=== PATIENT | female | born 1950 | race Caucasian/White ===

== ENCOUNTER 2017-01-21 18:28 | Inpatient (IN) | payer OTHER ==
[~2017-01-21] VITALS: Ht 154.9 cm; Wt 140.0 kg
--- NOTE | 2017-01-21 18:52 | ERA ---
ER Documentation Chief Complaint Date/Time DATE: 01/21/17 TIME: 18:51 Chief Complaint Abdominal pain HPI The patient is 67-year-old female, presenting to the ER because of diffuse abdominal pain, more painful at the right upper quadrant radiating to the right shoulder for the last week, worse today. She denies any chest pain as documented by the triage note. She denies fever, chills, neck pain, dyspnea, vomiting, dysuria, diarrhea, constipation. She does not smoke nor drink Past medical history: Diabetes mellitus, dyslipidemia, bipolar disorder, schizoaffective disorder, cholelithiasis Past surgical history: None ROS All systems reviewed and are negative except as per history of present illness. Allergies Allergies: Coded Allergies: No Known Allergy (Unverified , 01/21/17) Physical Exam Vitals Vital Signs Date Time Temp Pulse Resp B/P Pulse Ox O2 Delivery O2 Flow Rate FiO2 01/21/17 18:46 98.4 138 24 138/102 91 Physical Exam Const: No acute distress. Head: Atraumatic. Eyes: Normal Conjunctiva. ENT: Normal External Ears, Nose and Mouth. Neck: Full range of motion. No meningismus. Resp: Clear to auscultation bilaterally. Cardio: Regular tachycardic Abd: Soft, non distended, normal bowel sounds, diffuse abdominal tenderness, more tender at the right upper quadrant, no rigidity, rebound, CVA tenderness Skin: No petechiae or rashes. Back: No midline or flank tenderness. Ext: No cyanosis, or edema. Neur: Awake and alert. No focal deficit Psych: Normal Mood and Affect. Result Diagram: 01/21/17 1850 01/21/17 1850 Results 24 hrs Laboratory Tests Test 01/21/17 18:50 White Blood Count 14.310^3/ul Red Blood Count 5.2210^6/ul Hemoglobin 13.6g/dl Hematocrit 40.8% Mean Corpuscular Volume 78.2fl Mean Corpuscular Hemoglobin 26.1pg Mean Corpuscular Hemoglobin Concent 33.3g/dl Red Cell Distribution Width 13.8% Platelet Count 88308^3/UL Mean Platelet Volume 10.4fl Neutrophils % 67.0% Lymphocytes % 24.3% Monocytes % 6.9% Eosinophils % 0.9% Basophils % 0.4% Nucleated Red Blood Cells % 0.0/100WBC Neutrophils # 9.610^3/ul Lymphocytes # 3.510^3/ul Monocytes # 1.010^3/ul Eosinophils # 0.110^3/ul Basophils # 0.110^3/ul Nucleated Red Blood Cells # 0.010^3/ul Prothrombin Time 14.9Sec Prothrombin Time Ratio 1.2 INR International Normalized Ratio 1.16 Activated Partial Thromboplast Time 21.4Sec D-Dimer Pending Sodium Level 138mmol/L Potassium Level 3.2mmol/L Chloride Level 97mmol/L Carbon Dioxide Level 21mmol/L Anion Gap 23 Blood Urea Nitrogen 7mg/dl Creatinine 0.66mg/dl Glucose Level 254mg/dl Lactic Acid Level 4.3mmol/L Calcium Level 8.4mg/dl Total Bilirubin 0.4mg/dl Direct Bilirubin 0.00mg/dl Indirect Bilirubin 0.4mg/dl Aspartate Amino Transf (AST/SGOT) 22IU/L Alanine Aminotransferase (ALT/SGPT) 18IU/L Alkaline Phosphatase 176IU/L Troponin I < 0.012ng/ml Total Protein 8.5g/dl Albumin 3.8g/dl Globulin 4.70g/dl Albumin/Globulin Ratio 0.80 Thyroid Stimulating Hormone (TSH) Pending Current Medications Medications (Trade) Dose Ordered Sig/Mireya Route PRN Reason Start Time Stop Time Status Last Admin Dose Admin Piperacillin Sod/ Tazobactam Sod (Zosyn 3.375gm/ 100 ml (Pmx)) 100 ml @ 200 mls/hr ONCE ONCE IVPB 01/21/17 20:00 01/21/17 20:29 01/21/17 19:54 Morphine Sulfate (morphine) 4 mg ONCE STAT IV 01/21/17 19:38 01/21/17 19:39 DC 01/21/17 19:54 Ondansetron HCl 4 mg 4 mg ONCE STAT IV 01/21/17 19:38 01/21/17 19:39 DC 01/21/17 19:54 Sodium Chloride 4,340 ml @ 4,340 mls/hr BOLUS X1 ONCE IV 01/21/17 20:00 01/21/17 20:59 01/21/17 19:55 Potassium Chloride (KCl 40 MEQ/250 ML NS) 250 ml @ 62.5 mls/hr ONCE ONCE IVPB 01/21/17 20:00 01/21/17 23:59 Procedures/MDM EKG: Read by emergency physician Rate/Rhythm: Sinus tachycardia 136 beats/min QRS, ST, T-waves: No ST elevation, no T inversion Impression: Abnormal EKG [place] [id number] Radiology Main Line: [phone] DIAGNOSTIC IMAGING REPORT Patient: NICOLE REYES : 1950 Age: 67 Sex: F MR #: [id number] DOS: 01/21/17 1855 Ordering MD: LAUREN CALDERÓN MD Location: E/R Room/Bed: PROCEDURE: CT abdomen and pelvis with. contrast. CLINICAL INDICATION: Abdominal pain. TECHNIQUE: Noncontrast CT examination of the abdomen and pelvis, with axial, sagittal and coronal reformatted images. CTDI: 23.74 mGy and DLP: 1661.66 mGy-cm. COMPARISON: None. FINDINGS: CT abdomen: The lung bases are clear. The heart size is normal, without pericardial thickening or effusion. On noncontrast attenuation of the liver is compatible with fatty infiltration. Small amount of free fluid over the liver. The spleen is normal in size and homogeneous in density. The stomach is partially collapsed, but is grossly unremarkable. The pancreas as visualized is normal. The gallbladder is dilated , gallbladder wall thickening, pericholecystic fluid and large gallstone. Findings compatible with acute cholecystitis. Intraperitoneal fat inflammatory changes over the region of the gallbladder. Otherwise, the biliary tree is unremarkable and there is no evidence for biliary dilatation. The adrenal glands are symmetric and normal. The kidneys are symmetrically unremarkable as well. No renal calculus or obstructive uropathy or mass lesion is seen. The aorta is of normal caliber. Aortic vascular calcifications are mild. There is no retroperitoneal lymphadenopathy. The camila hepatis region is clear. The bowel and mesentery, as visualized, are equally unremarkable. CT pelvis: The small bowel loops situated within the pelvis are unremarkable. The pelvic organs are normal. The pelvic sidewalls and inguinal regions are clear. The sigmoid colon and rectum are all unremarkable. No mass, lymphadenopathy, or free fluid is seen. No acute inflammation is seen. The discretely visualize likely appendix is unremarkable. The surrounding osseous structures are remarkable for mild degenerative spondylosis of the spine. No osteolytic or osteoblastic lesion is detected. IMPRESSION: 1. Acute cholecystitis. 2. Fatty infiltration of the liver, with small amount of free fluid over the liver. RPTAT: [facility] Physician Sakina Date Time Electronically viewed and signed by Physician Sakina on 01/21/2017 19:23 RS/ CC: LAUREN CALDERÓN MD MEDICAL MAKING DECISION: The patient is a 67-year-old female, presenting with acute septic shock, acute cholecystitis, acute hypokalemia. She was treated with Zosyn IV, IV fluid, morphine 4 mg v for pain, Zofran 4 mg IV for nausea, potassium chloride 40 mEq IV, normal saline 30 mL/kg IV. The differential diagnoses considered include but are not limited to cholelithiasis, cholecystitis, cystitis, pancreatitis, hepatitis, gastritis, peptic ulcer disease, gastric ulcer, appendicitis, diverticulitis, cholangitis, choledocholithiasis, partial small bowel obstruction. Urinalysis, TSH, d-dimer, chest x-ray are pending Admit MDM: Patient's infectious symptoms have not stabilized and the patient is at risk of rapid decompensation. The patient will be admitted for careful hydration, antibiotic therapy, and infectious source control. Severe Sepsis criteria: Infectious source: Cholecystitis End organ damage indicated by: Lactate > 2.0 mmol/L Sepsis Management: Time of recognition of severe sepsis/septic shock:7:30 PM Within 3 hours of recognition: Blood cultures x 2 before broad-spectrum antibiotics: Yes 30 ml/kg NS bolus completed Initial lactate 4.3 Repeat lactate pnd Critical Care: Critical care time 35 minutes Emergent fluid management while maintaining close respiratory support. Provision of immediate and broad-spectrum antibiotic therapy. Simultaneous assessment for possible sources in order to direct targeted therapy. Consideration for invasive and chemical support to prevent cardiopulmonary collapse. Septic Shock Assessment: Any lactic acid > 4.0 no Persistent hypotension (SBP < 90 or 40 mmHg drop, MAP < 65) despite 30 mL/kg IV fluid bolusno Departure Diagnosis: Primary Impression: Septic shock Additional Impressions: Cholecystitis Hypokalemia Condition: Stable Comments Consultation: I discussed the patient with the on-call general surgeon Dr. Davila at 7:30 PM, who was made aware of the lab, treatment, the patient condition. He accepted the consult I discussed the findings with the patient. I discussed the patient with the hospitalist Dr. Kennedy who was made aware of the lab, the treatment, the patient condition. The patient is admitted to telemetry at 7:40 PM The patient's blood pressure was elevated (>120/80) but appears stable without evidence of hypertension emergency or urgency. The patient was counseled about the risks of hypertension and urged to pursue outpatient monitoring and therapy within a week after discharge with their primary care physician. LAUREN CALDERÓN MD Jan 21, 2017 18:52
[2017-01-21 19:11] LABS: ADD SCAN DIFF NO
[2017-01-21 19:16] LABS: BASOPHIL # 0.1 10^3/ul (0.0-0.1); BASOPHILS % 0.4 % (0.0-2.0); EOSINOPHILS # 0.1 10^3/ul (0.0-0.5); EOSINOPHILS % 0.9 % (0.0-7.0); HEMATOCRIT 40.8 % (37.0-47.0); HEMOGLOBIN 13.6 g/dl (12.0-16.0); LYMPHOCYTES # 3.5 10^3/ul (0.8-2.9); LYMPHOCYTES % 24.3 % (15.0-51.0); MEAN CORPUSCULAR HEMOGLOBIN 26.1 pg (29.0-33.0); MEAN CORPUSCULAR HGB CONC 33.3 g/dl (32.0-37.0); MEAN CORPUSCULAR VOLUME 78.2 fl (82.0-101.0); MEAN PLATELET VOLUME 10.4 fl (7.4-10.4); MONOCYTES % 6.9 % (0.0-11.0); NEUTROPHIL # 9.6 10^3/ul (1.6-7.5); PLATELET COUNT 311 10^3/UL (140-415); RED BLOOD COUNT 5.22 10^6/ul (4.20-5.40); RED CELL DISTRIBUTION WIDTH 13.8 % (11.5-14.5); WHITE BLOOD COUNT 14.3 10^3/ul (4.8-10.8)
--- NOTE | 2017-01-21 19:23 | RADRPT ---
PROCEDURE: CT abdomen and pelvis with. contrast. CLINICAL INDICATION: Abdominal pain. TECHNIQUE: Noncontrast CT examination of the abdomen and pelvis, with axial, sagittal and coronal re formatted images. CTDI: 23.74 mGy and DLP: 1661.66 mGy-cm. COMPARISON: None. FINDINGS: CT abdomen: The lung bases are clear. The heart size is normal, without pericardial thickening or effusion. On noncontrast attenuation of the liver is compatible with fatty infiltration. Small amount of free fluid over the liver. The spleen is normal in size and homogeneous in density. The stomach is parti ally collapsed, but is grossly unremarkable. The pancreas as visualized is normal. The gallbladder is dilated, gallbladder wall thickening, pericholecystic fluid and large gallstone. Findings cipriano tible with acute cholecystitis. Intraperitoneal fat inflammatory changes over the region of the gall bladder. Otherwise, the biliary tree is unremarkable and there is no evidence for biliary dilatation . The adrenal glands are symmetric and normal. The kidneys are symmetrically unremarkable as well. No renal calculus or obstructive uropathy or mass lesion is seen. The aorta is of normal caliber. Aortic vascular calcifications are mild. There is no retroperitone al lymphadenopathy. The camila hepatis region is clear. The bowel and mesentery, as visualized, are equally unremarkable. CT pelvis: The small bowel loops situated within the pelvis are unremarkable. The pelvic organs are normal. T he pelvic sidewalls and inguinal regions are clear. The sigmoid colon and rectum are all unremarkab le. No mass, lymphadenopathy, or free fluid is seen. No acute inflammation is seen. The discretel y visualize likely appendix is unremarkable. The surrounding osseous structures are remarkable for mild degenerative spondylosis of the spine. N o osteolytic or osteoblastic lesion is detected. IMPRESSION: 1. Acute cholecystitis. 2. Fatty infiltration of the liver, with small amount of free fluid over the liver. RPTAT: [facility] Physician Sakina Date Time Electronically viewed and signed by Physician Sakina on 01/21/2017 19:23 RS/
[2017-01-21 19:30] LABS: ALBUMIN 3.8 g/dl (3.3-4.9); CHLORIDE 97 mmol/L (97-110)
[2017-01-21 19:31] LABS: POTASSIUM 3.2 mmol/L (3.5-5.1); SODIUM 138 mmol/L (135-144)
[2017-01-21 19:33] LABS: ALANINE AMINOTRANSFERASE 18 IU/L (13-69); ALKALINE PHOSPHATASE 176 IU/L (42-121); ANION GAP 23 (8-16); ASPARTATE AMINO TRANSFERASE 22 IU/L (15-46); BILIRUBIN,INDIRECT 0.4 mg/dl (0-1.1); BILIRUBIN,TOTAL 0.4 mg/dl (0.2-1.3); BLOOD UREA NITROGEN 7 mg/dl (7-20); CARBON DIOXIDE 21 mmol/L (21-31); CREATININE 0.66 mg/dl (0.44-1.00); TOTAL PROTEIN 8.5 g/dl (6.1-8.1)
[2017-01-21 19:34] LABS: CALCIUM 8.4 mg/dl (8.4-10.2); GLUCOSE 254 mg/dl (70-220)
[2017-01-21 19:36] LABS: INR 1.16; PARTIAL THROMBOPLASTIN TIME 21.4 Sec (25.0-35.0); PROTIME 14.9 Sec (12.2-14.2); PT RATIO 1.2
[2017-01-21] MEDS ORDERED: ONDANSETRON 4 MG INJ IV STA (19:38)
[2017-01-21] MEDS ORDERED: morphine 4 MG/ML VIAL IV STA (19:38)
[2017-01-21 19:45] LABS: TROPONIN-I < 0.012 ng/ml (0.00-0.12)
[2017-01-21] MEDS ORDERED: POTASSIUM CHLORIDE 250 ML IVPB ONE (20:00)
[2017-01-21] MEDS ORDERED: SOD CHLORIDE 0.9% IV ONE (20:00)
[2017-01-21] MEDS ORDERED: PIPER-TAZO 3.375 GM IV (PMX) 100 ML IVPB ONE (20:00)
--- NOTE | 2017-01-21 20:01 | HP ---
Date/Time of Note Date/Time of Note DATE: 01/21/17 TIME: 20:01 Assessment/Plan VTE Prophylaxis VTE Prophylaxis Intervention: other (Lovenox) Assessment/Plan Assessment/Plan 1) Severe Septic with elevated lactic acid, elevated heart rate and elevated respiratory rate and infected gall bladder - Admit to Telemetry - IV Hydration - Monitor - Supportive Care 2) Cholecystitis, Acute - NPO - Pain Control and Zosyn - General Surgery Consult done by Dr. Pike who requests Cardiac Clearance prior to surgery - CONSULT: Cardiology - Dr. Stephens 3) Hypokalemia - Replacement 4) Schozoaffective Disorder - On monthly Haldol per RN - No current treatment needed HPI/ROS Admit Date/Time Admit Date/Time 01/21/171945 Hx of Present Illness Abdominal pain HPI The patient is 67-year-old female, presenting to the ER because of diffuse abdominal pain, more painful at the right upper quadrant radiating to the right shoulder for the last week, worse today. She denies any chest pain as documented by the triage note. She denies fever, chills, neck pain, dyspnea, vomiting, dysuria, diarrhea, constipation. She does not smoke nor drink ER Course per ER Physician: She was treated with Zosyn IV, IV fluid, morphine 4 mg v for pain, Zofran 4 mg IV for nausea, potassium chloride 40 mEq IV, normal saline 30 mL/kg IV. ROS General: Admits: Denies: Fever, Chills, Poor Appetite, Generalized Body Aches Eyes: Admits: Denies: Blurry Vision, Double Vision HENT: Admits: Denies: Ear Pain/Pressure, Runny/Stuffy Nose, Sore Throat Cardiovascular: Admits: Denies: Chest Pain, Palpitations, Leg Swelling Pulmonary: Admits: Denies: Cough, Wheeze, Shortness of Breath Gastrointestinal: Admits: Abdominal Pain, Denies: Nausea, Vomiting, Diarrhea, Blood in Stool, Black-Colored Stool Urogenital: Admits: Denies: Burning with Urination, Urinary Frequency, Blood in Urine Musculoskeletal: Admits: Denies: Joint Pain, Joint Swelling, Muscle Pain Neurological: Admits: Denies: Headache, Dizziness, Numbness, Tingling, Shooting Pains Integumentary: Admits: Denies: Rash, Itch Endocrine: Admits: Denies: Excessive Thirst, Excessive Hunger, Intolerant to Cold , Intolerant to Heat Psychiatric: Admits: Denies: Anxiety, Depression PMH/Family/Social Past Medical History Diabetes mellitus, dyslipidemia, bipolar disorder, schizoaffective disorder, cholelithiasis Past Surgical History Past Surgical Hx: no surgical history Social History Alcohol Use: none Smoking Status: Never smoker Drug Use: none Exam/Review of Systems Vital Signs Vitals Vital Signs Date Time Temp Pulse Resp B/P Pulse Ox O2 Delivery O2 Flow Rate FiO2 01/21/17 18:46 98.4 138 24 138/102 91 Exam Exam General: Morbidly obese female, lying on gurney in ER with 2 brothers at her bedside. She is alert and cooperative, in no acute distress. Eyes: Sclera White, EOMI HENT: Normocephalic/Atraumatic, External Ears/Nose Normal, Moist Mucus Membranes Neck: Supple, Trachea Midline Cardiovascular: Tachy Rate, Normal Rhythm, Normal S1 and S2, No Murmur, No Extra Sounds Pulmonary: Clear to Auscultation Bilaterally, Normal Respiratory Effort, No Rales, Rhonchi or Wheezes Gastrointestinal: Normoactive Bowel Sounds, Soft, Diffuse abdominal tenderness , most tender at RUQ, no guarding, no rebound.No Distention, No Hepatosplenomegaly Appreciated, No Pulsatile Masses Urogenital: Deferred Musculoskeletal: Normal Muscle Bulk and Tone Cardio: Neurological: CN II - XII Grossly Intact, Non-Focal, Speech Normal Integumentary: Normal Moisture and Temperature, Good Turgor, No Jaundice, No Rash. Hirsuit chin. Lymphatic: No Cervical Lymphadenopathy Psychiatric: Appropriate Mood and Affect, Fair Eye Contact Labs Result Diagram: 01/21/17184901/21/171849 Medications Medications Current Medications Medications (Trade) Dose Ordered Sig/Mireya Route PRN Reason Start Time Stop Time Status Last Admin Dose Admin Piperacillin Sod/ Tazobactam Sod (Zosyn 3.375gm/ 100 ml (Pmx)) 100 ml @ 200 mls/hr ONCE ONCE IVPB 01/21/17 20:00 01/21/17 20:29 01/21/17 19:54 Morphine Sulfate (morphine) 4 mg ONCE STAT IV 01/21/17 19:38 01/21/17 19:39 DC 01/21/17 19:54 Ondansetron HCl 4 mg 4 mg ONCE STAT IV 01/21/17 19:38 01/21/17 19:39 DC 01/21/17 19:54 Sodium Chloride 4,340 ml @ 4,340 mls/hr BOLUS X1 ONCE IV 01/21/17 20:00 01/21/17 20:59 01/21/17 19:55 Potassium Chloride (KCl 40 MEQ/250 ML NS) 250 ml @ 62.5 mls/hr ONCE ONCE IVPB 01/21/17 20:00 01/21/17 23:59 Procedures Procedures Laboratory Tests Test 01/21/17 18:50 White Blood Count 14.310^3/ul Red Blood Count 5.2210^6/ul Hemoglobin 13.6g/dl Hematocrit 40.8% Mean Corpuscular Volume 78.2fl Mean Corpuscular Hemoglobin 26.1pg Mean Corpuscular Hemoglobin Concent 33.3g/dl Red Cell Distribution Width 13.8% Platelet Count 64635^3/UL Mean Platelet Volume 10.4fl Neutrophils % 67.0% Lymphocytes % 24.3% Monocytes % 6.9% Eosinophils % 0.9% Basophils % 0.4% Nucleated Red Blood Cells % 0.0/100WBC Neutrophils # 9.610^3/ul Lymphocytes # 3.510^3/ul Monocytes # 1.010^3/ul Eosinophils # 0.110^3/ul Basophils # 0.110^3/ul Nucleated Red Blood Cells # 0.010^3/ul Prothrombin Time 14.9Sec Prothrombin Time Ratio 1.2 INR International Normalized Ratio 1.16 Activated Partial Thromboplast Time 21.4Sec D-Dimer Pending Sodium Level 138mmol/L Potassium Level 3.2mmol/L Chloride Level 97mmol/L Carbon Dioxide Level 21mmol/L Anion Gap 23 Blood Urea Nitrogen 7mg/dl Creatinine 0.66mg/dl Glucose Level 254mg/dl Lactic Acid Level 4.3mmol/L Calcium Level 8.4mg/dl Total Bilirubin 0.4mg/dl Direct Bilirubin 0.00mg/dl Indirect Bilirubin 0.4mg/dl Aspartate Amino Transf (AST/SGOT) 22IU/L Alanine Aminotransferase (ALT/SGPT) 18IU/L Alkaline Phosphatase 176IU/L Troponin I < 0.012ng/ml Total Protein 8.5g/dl Albumin 3.8g/dl Globulin 4.70g/dl Albumin/Globulin Ratio 0.80 Thyroid Stimulating Hormone (TSH) Pending EKG: Read by emergency physician Rate/Rhythm: Sinus tachycardia 136 beats/min QRS, ST, T-waves: No ST elevation, no T inversion Impression: Abnormal EKG PROCEDURE: CT abdomen and pelvis with. contrast. CLINICAL INDICATION: Abdominal pain. COMPARISON: None. IMPRESSION: 1. Acute cholecystitis. 2. Fatty infiltration of the liver, with small amount of free fluid over the liver. DOUGLAS SNEED DO Jan 21, 2017 20:01 Lactic Acid Level 4.3mmol/L Calcium Level 8.4mg/dl Total Bilirubin 0.4mg/dl Direct Bilirubin 0.00mg/dl Indirect Bilirubin 0.4mg/dl Aspartate Amino Transf (AST/SGOT) 22IU/L Alanine Aminotransferase (ALT/SGPT) 18IU/L Alkaline Phosphatase 176IU/L Troponin I < 0.012ng/ml Total Protein 8.5g/dl Albumin 3.8g/dl Globulin 4.70g/dl Albumin/Globulin Ratio 0.80 Thyroid Stimulating Hormone (TSH) Pending EKG: Read by emergency physician Rate/Rhythm: Sinus tachycardia 136 beats/min QRS, ST, T-waves: No ST elevation, no T inversion Impression: Abnormal EKG PROCEDURE: CT abdomen and pelvis with. contrast. CLINICAL INDICATION: Abdominal pain. COMPARISON: None.
[2017-01-21 20:23] LABS: D-DIMER 3960.68 ng/ml (<460)
--- NOTE | 2017-01-21 21:14 | RADRPT ---
PROCEDURE: XR Chest. CLINICAL INDICATION: Possible sepsis. TECHNIQUE: Single frontal view of the chest was obtained COMPARISON: Partially visualized lung bases on today's CT examination of the abdomen and pelvis. FINDINGS: Hypoinflated lungs, the patient body habitus and portable technique accentuates pulmonary vascular m arkings. Mild bibasilar atelectasis, left greater than right. There is no pleural effusion or pneumothorax. IMPRESSION: Mild bibasilar atelectasis, left greater than right. RPTAT: [facility] Physician Sakina Date Time Electronically viewed and signed by Physician Sakina on 01/21/2017 21:13 RS/
[2017-01-21] MEDS ORDERED: LORAZEPAM 2 MG INJ ONE (21:20)
--- NOTE | 2017-01-21 21:23 | CONS ---
DATE OF ADMISSION: 01/21/2017 DATE OF CONSULTATION: 01/21/2017 TYPE OF CONSULTATION: Surgical REFERRING PHYSICIAN: Josh Calderón MD CHIEF COMPLAINT: 1. Abdominal pain. 2. Acute cholecystitis. 3. Body mass index 51. 4. Diabetes. 5. Hypertension. 6. Leukocytosis. 7. Lactic acidosis. 8. Fatty liver. 9. Depression. 10. Schizophrenia. 11. Bipolar. HISTORY OF PRESENT ILLNESS: Orlin Montemayor is a 67-year-old female with multiple significant com orbidities who presents with a week of on and off epigastric and right upper quadrant abdominal pain which has worsened over the past few days and more constant and sharp. It is associated with pain with deep inspiration; however, no nausea, vomiting, fevers or chills. No cough. No seizure. No b lood per mouth or rectum. No visual or neurologic changes. No dysuria. No vaginal discharge. No previous history of the same. No trauma or sick contacts. In the emergency room, she is found to be afebrile with abnormal vitals including a pulse in the 120 s to 130s, blood pressure 138/102. The patient had blood work that shows leukocytosis at 14,000 and lactic acid of 4.3. CT scan of the abdomen and pelvis shows fatty liver with acute cholecystitis. Surgical consult is obtained for further evaluation and treatment. PAST MEDICAL HISTORY: 1. Morbid obesity with BMI of 51. 2. Fatty liver. 3. Diabetes. 4. Hypertension. 5. Schizophrenia. 6. Depression. 7. Bipolar. 8. Acute leukocytosis. 9. Acute cholecystitis. 10. Hypokalemia, acute. 11. Hyperglycemia. 12. Acute lactic acidosis. PAST SURGICAL HISTORY: Denies. MEDICATIONS: As per MAR. ALLERGIES: DENIES. SOCIAL HISTORY: Denies alcohol, drugs or tobacco. FAMILY HISTORY: Noncontributory. REVIEW OF SYSTEMS: A 12-point review of systems negative unless addressed in the HPI. PHYSICAL EXAMINATION: VITAL SIGNS: Temperature is 98.4, pulse 120s to 130s, blood pressure 138/102, satting 91%. GENERAL: Morbidly obese, no acute distress. Flat affect. HEENT: Pupils equal, reactive. No scleral icterus. Mucous membranes are moist. NECK: Supple, obese, no JVD observable. PULMONARY: Normal respiratory effort. No wheezing. CARDIAC: S1, S2 present and tachy. ABDOMEN: Soft, morbidly obese, tender in the epigastric and right upper quadrant region. No reboun d, no guarding, not rigid; however, difficult to exam. EXTREMITIES: With edema. VASCULAR: Cap refill is 2 seconds. NEUROLOGIC: Alert and oriented, moves all 4 extremities grossly. LABORATORY AND RADIOGRAPHIC: As per chart and HPI. ASSESSMENT AND PLAN: Orlin Montemayor is a 67-year-old female with significant comorbidities. 1. Abdominal pain, leukocytosis and CT findings are suggestive of acute cholecystitis. Continue an tibiotics, supportive care and consider eventual surgery; however, the patient needs to be medically optimized. 2. Possible sepsis secondary to above. Continue antibiotics judicious fluid management and medical optimization. 3. Morbid obesity with body mass index of 51. The patient is highly encouraged to eventually optim ize her nutrition and exercise to improve her overall health status. 4. Hypokalemia, please replete. 5. Diabetes. Continue diet and medication control and encourage weight loss. 6. Hypertension. Continue diet and medication control and encourage weight loss. 7. Lactic acidosis secondary to #1 and #2. Treatment as above. 8. Psychiatric disorders with bipolar, depression and schizophrenia. Continue medical and psychiat jermaine optimization. Thank you very much for consulting me in this patient's care. Dictated By: ANGELICA RIVERA MD SK/REHAN Conf#: [id number] DID#: [id number] CC: JOSH CALDERÓN MD; ANGELICA RIVERA MD;*EndCC*
[2017-01-21] MEDS: morphine 4 MG/ML VIAL IV PRN (21:24)
[2017-01-21] MEDS ORDERED: LORAZEPAM 2 MG INJ IV PRN ×2 (21:30→23:00)
[2017-01-21] MEDS ORDERED: ONDANSETRON 4 MG INJ IV PRN (21:30)
[2017-01-21] MEDS ORDERED: HYDROmorphONE 2 MG/ML SYG IV STA (22:57)
[2017-01-21] MEDS ORDERED: NITROGLYCERIN (SL) 0.4 MG TAB SL PRN (23:00)
[2017-01-21] MEDS ORDERED: HYDROmorphONE 2 MG/ML SYG IV PRN (23:00)
[2017-01-21] MEDS ORDERED: METOCLOPRAMIDE 10 MG INJ IV PRN (23:00)
[2017-01-21] MEDS ORDERED: NACL 0.9% 3 ML SYG IV SCH (23:00)
[2017-01-21] MEDS ORDERED: PRAV20TA2 PO (23:03)
[2017-01-21] MEDS ORDERED: MTF1000T PO (23:03)
[2017-01-21] MEDS ORDERED: GLIP2.5T3 PO (23:03)
[2017-01-21 23:30] VITALS: Ht 154.9 cm; Wt 140.0 kg
[2017-01-21] MEDS ORDERED: GLUCOSE GEL 15 GRAM TUBE BUCCAL PRN (23:30)
[2017-01-21] MEDS ORDERED: GLUCAGON 1 MG INJ IM PRN (23:30)
[2017-01-21] MEDS ORDERED: GLUCOSE GEL 15 GRAM TUBE PO PRN ×2 (23:30)
[2017-01-21] MEDS ORDERED: DEXTROSE 50% 50 ML SYRINGE IV PRN ×2 (23:30)
[2017-01-21 23:36] LABS: CREATINE KINASE 21 IU/L (23-200)
[2017-01-21 23:49] LABS: CK-MB < 0.22 ng/ml (0.0-2.4)
[2017-01-21 23:56] LABS: TROPONIN-I < 0.010 ng/ml (0.00-0.12)
[2017-01-22] VITALS (37 sets, daily range): BP systolic 87–222; BP diastolic 58–118; PULSE 92–146; RESP 16–39
[2017-01-22] MEDS: FAMOTIDINE 20 MG INJ IV SCH ×2 (00:25→08:25)
[2017-01-22] MEDS: PIPER-TAZO 3.375 GM IV (PMX) 100 ML IVPB SCH ×4 (00:38→18:15)
[2017-01-22] MEDS: INSULIN ASPART [NOVOLOG] 3 ML PEN SC SCH ×6 (01:03→21:00)
[2017-01-22 06:43] LABS: ADD SCAN DIFF NO
[2017-01-22 06:45] LABS: BASOPHIL # 0.1 10^3/ul (0.0-0.1); BASOPHILS % 0.4 % (0.0-2.0); HEMATOCRIT 38.8 % (37.0-47.0); HEMOGLOBIN 12.3 g/dl (12.0-16.0); LYMPHOCYTES # 1.2 10^3/ul (0.8-2.9); LYMPHOCYTES % 10.2 % (15.0-51.0); MEAN CORPUSCULAR HEMOGLOBIN 25.9 pg (29.0-33.0); MEAN CORPUSCULAR HGB CONC 31.7 g/dl (32.0-37.0); MEAN CORPUSCULAR VOLUME 81.7 fl (82.0-101.0); MEAN PLATELET VOLUME 10.5 fl (7.4-10.4); MONOCYTE # 0.9 10^3/ul (0.3-0.9); MONOCYTES % 7.5 % (0.0-11.0); NEUTROPHIL # 9.7 10^3/ul (1.6-7.5); NEUTROPHILS % 81.3 % (39.0-77.0); PLATELET COUNT 237 10^3/UL (140-415); RED BLOOD COUNT 4.75 10^6/ul (4.20-5.40); RED CELL DISTRIBUTION WIDTH 14.4 % (11.5-14.5); WHITE BLOOD COUNT 11.9 10^3/ul (4.8-10.8)
[2017-01-22] MEDS ORDERED: SUCCINYLCHOLINE CHLORIDE 100 MG/5 ML SYG IV ONE (07:00)
[2017-01-22] MEDS ORDERED: ONDANSETRON 4 MG INJ ONE (07:00)
[2017-01-22 07:01] LABS: POTASSIUM 4.3 mmol/L (3.5-5.1)
[2017-01-22 07:04] LABS: CREATININE 0.89 mg/dl (0.44-1.00)
[2017-01-22 07:05] LABS: CALCIUM 7.7 mg/dl (8.4-10.2); CHOL/HDL RATIO 3.7 RATIO
[2017-01-22 08:05] LABS: CREATINE KINASE 22 IU/L (23-200)
[2017-01-22 08:16] LABS: CK-MB < 0.22 ng/ml (0.0-2.4)
[2017-01-22 08:18] LABS: TROPONIN-I 0.016 ng/ml (0.00-0.12)
[2017-01-22] MEDS: hydrALAzine 20 MG INJ IV PRN ×2 (08:26→21:14)
[2017-01-22] MEDS: ENOXAPARIN 40 MG/0.4 ML SYG SC SCH (08:38)
[2017-01-22] MEDS: SOD CHLORIDE 0.9% 1,000 ML IV SCH (09:03)
[2017-01-22 13:07] LABS: ALBUMIN 3.1 g/dl (3.3-4.9)
[2017-01-22 13:10] LABS: BILIRUBIN,INDIRECT 0.3 mg/dl (0-1.1); BILIRUBIN,TOTAL 0.3 mg/dl (0.2-1.3); TOTAL PROTEIN 6.8 g/dl (6.1-8.1)
--- NOTE | 2017-01-22 14:40 | PN ---
Date/Time of Note Date/Time of Note DATE: 01/22/17 TIME: 14:27 Assessment/Plan VTE Prophylaxis VTE Prophylaxis Intervention: LMWH Lines/Catheters Urinary Cath still in place: No Assessment/Plan Assessment/Plan 1. Acute cholecystitis, on zosyn, follow up with Dr. Davila for surgery 2. Diabetes mellitus, on insulin 3. Hypertension, lisinopril 4. Lactic acidosis. resolved 5. Fatty liver. 6. Psychiatric disorders 7. DVT prophylaxis: lovenox Exam/Review of Systems Vital Signs Vitals Vital Signs Date Time Temp Pulse Resp B/P Pulse Ox O2 Delivery O2 Flow Rate FiO2 01/22/17 12:38 107 01/22/17 11:32 98.2 18 161/75 93 01/22/17 08:00 Nasal Cannula 2.0 Intake and Output 01/21/17 01/21/17 01/22/17 15:00 23:00 07:00 Intake Total 4440 ml 320 ml Output Total 150 ml Balance 4440 ml 170 ml Results Result Diagram: 01/22/17 0540 01/22/17 0540 Results 24 hrs Laboratory Tests Test 01/21/17 18:50 01/21/17 20:45 01/21/17 22:35 01/22/17 00:53 White Blood Count 14.3 H Red Blood Count 5.22 Hemoglobin 13.6 Hematocrit 40.8 Mean Corpuscular Volume 78.2 L Mean Corpuscular Hemoglobin 26.1 L Mean Corpuscular Hemoglobin Concent 33.3 Red Cell Distribution Width 13.8 Platelet Count 311 Mean Platelet Volume 10.4 Neutrophils % 67.0 Lymphocytes % 24.3 Monocytes % 6.9 Eosinophils % 0.9 Basophils % 0.4 Nucleated Red Blood Cells % 0.0 Neutrophils # 9.6 H Lymphocytes # 3.5 H Monocytes # 1.0 H Eosinophils # 0.1 Basophils # 0.1 Nucleated Red Blood Cells # 0.0 Prothrombin Time 14.9 H Prothrombin Time Ratio 1.2 INR International Normalized Ratio 1.16 Activated Partial Thromboplast Time 21.4 L D-Dimer 3960.68 H D-Dimer Comment Sodium Level 138 Potassium Level 3.2 L Chloride Level 97 Carbon Dioxide Level 21 Anion Gap 23 H Blood Urea Nitrogen 7 Creatinine 0.66 Glucose Level 254 H Lactic Acid Level 4.3 *H 3.1 H 1.9 Calcium Level 8.4 Total Bilirubin 0.4 Direct Bilirubin 0.00 Indirect Bilirubin 0.4 Aspartate Amino Transf (AST/SGOT) 22 Alanine Aminotransferase (ALT/SGPT) 18 Alkaline Phosphatase 176 H Troponin I < 0.012 < 0.010 Total Protein 8.5 H Albumin 3.8 Globulin 4.70 H Albumin/Globulin Ratio 0.80 Thyroid Stimulating Hormone (TSH) 2.010 Creatine Kinase 21 L Creatine Kinase Index 1.0 Creatinine Kinase MB (Mass) < 0.22 Bedside Glucose 230 H Test 01/22/17 04:43 01/22/17 05:40 01/22/17 08:24 01/22/17 11:26 Bedside Glucose 222 H 257 H 232 H White Blood Count 11.9 H Red Blood Count 4.75 Hemoglobin 12.3 Hematocrit 38.8 Mean Corpuscular Volume 81.7 L Mean Corpuscular Hemoglobin 25.9 L Mean Corpuscular Hemoglobin Concent 31.7 L Red Cell Distribution Width 14.4 Platelet Count 237 # Mean Platelet Volume 10.5 H Neutrophils % 81.3 H Lymphocytes % 10.2 L Monocytes % 7.5 Eosinophils % 0.0 Basophils % 0.4 Nucleated Red Blood Cells % 0.0 Neutrophils # 9.7 H Lymphocytes # 1.2 Monocytes # 0.9 Eosinophils # 0.0 Basophils # 0.1 Nucleated Red Blood Cells # 0.0 Sodium Level 137 Potassium Level 4.3 Chloride Level 105 Carbon Dioxide Level 21 Anion Gap 15 # Blood Urea Nitrogen 10 Creatinine 0.89 Glucose Level 277 H Calcium Level 7.7 L Creatine Kinase 22 L Creatine Kinase Index 1.0 Creatinine Kinase MB (Mass) < 0.22 Troponin I 0.016 Triglycerides Level 91 Cholesterol Level 106 LDL Cholesterol, Calculated 60 HDL Cholesterol 28 L Cholesterol/HDL Ratio 3.7 Test 01/22/17 11:36 Lactic Acid Level 1.7 Total Bilirubin 0.3 Direct Bilirubin 0.00 Indirect Bilirubin 0.3 Aspartate Amino Transf (AST/SGOT) 16 Alanine Aminotransferase (ALT/SGPT) 23 Alkaline Phosphatase 130 H Total Protein 6.8 # Albumin 3.1 L Medications Medications Current Medications Ondansetron HCl (Zofran Inj) 4 mg Q4H PRN IV NAUSEA Last administered on t 21:23; Admin Dose 4 MG; Start 01/21/17 at 21:30 Morphine Sulfate (morphine) 4 mg Q4H PRN IV PAIN LEVEL 7-10 Last administered on 01/21/17 21:24; Admin Dose 4 MG; Start 01/21/17 at 21:30 Lorazepam (Ativan) 0.5 mg Q1HWA PRN IV ANXIETY Last administered on 01/21/17 21 :24; Admin Dose 0.5 MG; Start 01/21/17 at 21:30 Lorazepam (Ativan) 0.5 mg Q6H PRN IV ANXIETY; Start 01/21/17 at 23:00 Metoclopramide HCl (Reglan) 10 mg Q6H PRN IV NAUSEA AND/OR VOMITING; Start 01/21 at 23:00 Nitroglycerin (Nitroglycerin (Sl Tab) 0.4 Mg) 1 tab Q5M PRN SL CHEST PAIN; Start 01/21/17 at 23:00 Hydromorphone HCl (Dilaudid) 2 mg Q4H PRN IV PAIN LEVEL 7-10; Start 01/21/17 at 23:00 Famotidine (Pepcid Iv) 20 mg Q12 IV Last administered on 01/22/17 08:25; Admin Dose 20 MG; Start 01/21/17 at 23:00 Enoxaparin Sodium (Lovenox) 40 mg DAILY SC Last administered on 01/22/17 08:38 ; Admin Dose 40 MG; Start 01/22/17 at 09:00 Insulin Aspart (Novolog Insulin Pen) NOVOLOG *MODERATE* ALGORI... Q4 SC Last administered on 01/22/17 12:15; Admin Dose 6 UNIT; Start 01/22/17 at 01:00 Insulin Glargine 10 unit 10 unit DAILY@20 SC ; Start 01/22/17 at 20:00 Piperacillin Sod/ Tazobactam Sod (Zosyn 3.375gm/ 100 ml (Pmx)) 100 ml @ 200 mls /hr Q6 IVPB Last administered on 01/22/17 11:38; Admin Dose 200 MLS/HR; Start 01/22/17 at 00:00 Miscellaneous Information 1 ea NOTE XX ; Start 01/21/17 at 23:30 Glucose (Glutose) 15 gm Q15M PRN PO DECREASED GLUCOSE; Start 01/21/17 at 23:30 Glucose (Glutose) 22.5 gm Q15M PRN PO DECREASED GLUCOSE; Start 01/21/17 at 23:30 Dextrose (D50w Syringe) 25 ml Q15M PRN IV DECREASED GLUCOSE; Start 01/21/17 at 23:30 Dextrose (D50w Syringe) 50 ml Q15M PRN IV DECREASED GLUCOSE; Start 01/21/17 at 23:30 Glucagon (Glucagen) 1 mg Q15M PRN IM DECREASED GLUCOSE; Start 01/21/17 at 23:30 Glucose 15 gm 15 gm Q15M PRN BUCCAL DECREASED GLUCOSE; Start 01/21/17 at 23:30 Sodium Chloride (NS) 1,000 ml @ 100 mls/hr Q10H IV Last administered on 09:03; Admin Dose 100 MLS/HR; Start 01/22/17 at 07:00 Hydralazine HCl (Apresoline) 10 mg Q6H PRN IV SBP>160 Last administered on 08:26; Admin Dose 10 MG; Start 01/22/17 at 08:30 LAVINIA BYRD MD Jan 22, 2017 14:37
[2017-01-22] MEDS: LISINOPRIL 20 MG TAB PO SCH (15:34)
[2017-01-22] MEDS: INSULIN GLARGINE [LANtus] 3 ML PEN SC SCH ×2 (15:45→20:00)
[2017-01-22] MEDS ORDERED: BUPIVACAINE 0.25% (MPF) 30 ML INJ ONE (16:55)
[2017-01-22] MEDS ORDERED: LIDOCAINE 1%/EPI 30 ML INJ ONE (16:55)
[2017-01-22] MEDS ORDERED: MIDAZOLAM 1 MG/ML 2 ML INJ ONE (17:14)
[2017-01-22] MEDS ORDERED: ONDANSETRON 4 MG INJ IV PRN (17:30)
[2017-01-22] MEDS ORDERED: LABETALOL HCL 20MG INJ IV PRN (17:30)
[2017-01-22] MEDS ORDERED: hydrALAzine 20 MG INJ IV PRN (17:30)
[2017-01-22] MEDS ORDERED: METOCLOPRAMIDE 10 MG INJ IV PRN (17:30)
[2017-01-22] MEDS ORDERED: HYDROmorphONE (0.2 MG/ML) 10ML SYG IV PRN ×2 (17:30)
[2017-01-22] MEDS ORDERED: MEPERIDINE 25 MG INJ IV PRN (17:30)
[2017-01-22] MEDS ORDERED: FENTAnyl 50 MCG/ML VIAL IV PRN (17:30)
[2017-01-22] MEDS ORDERED: DIPHENHYDRAMINE 50 MG INJ IV PRN (17:30)
[2017-01-22] MEDS ORDERED: PHENYLephrine (100 MCG/ML) 5ML SYG ONE (17:43)
--- NOTE | 2017-01-22 17:59 | RADRPT ---
Echocardiogram Report Patient Name: ERIC RIVERA Y Gender: Female Date: 1950 Study Date: 22-Jan-2017 Warehouse Foreman: Mohan Morris [facility] Location: [id number] Ref. Physician: DOUGLAS SNEED Quality: Technically Difficult Study Procedures: Transthoracic echocardiogram with complete 2D, M-Mode, and doppler examination. Indications: Cardiac Clearance. 2D/M Mode Doppler Measurement Value Normal Ranges Measurement Value Normal Ranges LVIDd 2D 4.7 3.5 - 5.6 cm AV Peak Yuan 1.7 m/sec LVIDs 2D 2.7 2.1 - 4.1 cm AV Peak PG 12.0 mmHg FS 2D 42.2 % LVOT Peak Yuan 1.3 m/sec LVPWd 2D 1.3 0.6 - 1.1 cm LVOT Peak PG 7.0 mmHg IVSd 2D 1.4 0.6 - 1.1 cm MV E Peak Yuan 0.8 m/sec IVS/LVPW 2D 1.0 MV A Peak Yuan 1.4 m/sec AoR Diam 2D 2.7 2.0 - 3.7 cm MV E/A 0.6 LA/Ao 2D 2 0 - 1 MV Decel Time 155 msec EDV 2D 105.0 cm3 MV E/A 0.6 ESV 2D 20.3 cm3 LA Dimen 2D 4.1 2.3 - 4.0 cm Findings Left Ventricle: Normal left ventricular systolic function. Normal left ventricular cavity size. Mild concentric left ventricular hypertrophy. Ejection fraction is visually estimated at 65 %. Tissue Doppler/Mitral Doppler indices are consistent with impaired relaxation (Stage I diastolic dysfunction). Right Ventricle: Normal right ventricular size. Normal right ventricular systolic function. Left Atrium: The left atrium is normal in size. Right Atrium: Not well visualized. Mitral Valve: Mild mitral leaflet calcification. Mild mitral annular calcification. Trace mitral regurgitation. Aortic Valve: Normal appearance of the aortic valve. No significant aortic stenosis or insufficiency. Tricuspid Valve: Normal appearance of the tricuspid valve. Unable to obtain RVSP due to minimal presence of tricuspid regurgitation. Pulmonic Valve: Pulmonic valve not well visualized. Pericardium: Normal pericardium with no significant pericardial effusion. Aorta: Normal aortic root. IVC: The IVC is not well visualized. Conclusions 1.Normal left ventricular systolic function. Normal left ventricular cavity size. Mild concentric left ventricular hypertrophy. Ejection fraction is visually estimated at 65 %. Tissue Doppler/Mitral Doppler indices are consistent with impaired relaxation (Stage I diastolic dysfunction). 2.Mild mitral leaflet calcification. Mild mitral annular calcification. Trace mitral regurgitation. 3.Normal appearance of the tricuspid valve. Unable to obtain RVSP due to minimal presence of tricuspid regurgitation. Electronically Signed By: George Stephens 22-Jan-2017 17:58:09 -0700 Patient Name: ERIC Wilkerson Study Date: 22-Jan-2017 [id number]
[2017-01-22] MEDS ORDERED: INSULIN GLARGINE [LANtus] 3 ML PEN SC SCH (20:00)
[2017-01-22] MEDS ORDERED: ETOMIDATE 20 MG INJ ONE (20:13)
[2017-01-22] MEDS ORDERED: LIDOCAINE 2% (SDV) 5 ML INJ ONE (20:13)
[2017-01-22] MEDS ORDERED: NEOSTIGMINE 3 MG/3 ML SYRINGE ONE (20:13)
[2017-01-22] MEDS ORDERED: ROCURONIUM 50 MG INJ ONE (20:13)
[2017-01-22] MEDS ORDERED: GLYCOPYRROLATE 0.4 MG INJ ONE (20:13)
--- NOTE | 2017-01-22 20:36 | PN ---
Date/Time of Note Date/Time of Note DATE: 01/22/17 TIME: 20:33 Assessment/Plan Lines/Catheters IV Catheter Type (from [facility]): Peripheral IV Paredes in Place (from [facility]): No Assessment/Plan Chief Complaint/Hosp Course 1. Abdominal pain, leukocytosis and CT findings are suggestive of acute cholecystitis. -Continue antibiotics -Judicious fluid management -Lap nathan today since patient is cleared by hospitalist for medical and cardiac standpoint. 2. Possible sepsis secondary to above. Continue antibiotics judicious fluid management and medical optimization. 3. Morbid obesity with body mass index of 51. The patient is highly encouraged to eventually optimize her nutrition and exercise to improve her overall health status. 4. Hypokalemia, corrected 5. Diabetes. Continue diet and medication control and encourage weight loss. 6. Hypertension. Continue diet and medication control and encourage weight loss. 7. Lactic acidosis secondary to #1 and #2. Improved. 8. Psychiatric disorders with bipolar, depression and schizophrenia. Continue medical and psychiatric optimization. Thank you Problems: Subjective 24 Hr Interval Summary Pain persists. No nausea or vomiting. No fevers or chills. No chest pain or shortness of breath. No visual neurologic changes. No dysuria. No cough. No seizure. No blood per mouth or rectum. Bowel function. Hospitalist evaluated patient and does not think patient needs a cardiac eval and that patient is stable to proceed with surgery at this time from a medical and cardiac standpoint. Exam/Review of Systems Vital Signs Vitals Vital Signs Date Time Temp Pulse Resp B/P Pulse Ox O2 Delivery O2 Flow Rate FiO2 01/22/17 16:57 120 01/22/17 15:56 99.0 18 137/79 94 01/22/17 08:00 Nasal Cannula 2.0 Intake and Output 01/21/17 01/21/17 01/22/17 15:00 23:00 07:00 Intake Total 4440 ml 320 ml Output Total 150 ml Balance 4440 ml 170 ml Exam Free Text/Dictation GENERAL: Morbidly obese, no acute distress. Flat affect. HEENT: Pupils equal, reactive. No scleral icterus. Mucous membranes are moist. NECK: Supple, obese, no JVD observable. PULMONARY: Normal respiratory effort. No wheezing. CARDIAC: S1, S2 present and tachy. ABDOMEN: Soft, morbidly obese, tender in the epigastric and right upper quadrant region. No rebound, no guarding, not rigid; however, difficult to exam. EXTREMITIES: With edema. VASCULAR: Cap refill is 2 seconds. NEUROLOGIC: Alert and oriented, moves all 4 extremities grossly. Results Result Diagram: 01/22/17 0540 01/22/17 0540 ANGELICA RIVERA MD Jan 22, 2017 20:36
--- NOTE | 2017-01-22 20:51 | OPR ---
Date/Time of Note Date/Time of Note DATE: 01/22/17 TIME: 20:36 Operative Report Procedure Date: Jan 22, 2017 Procedure Description Preoperative Diagnosis: 1. Acute cholecystitis 2. BMI 58 3. Sepsis, improving 4. Diabetes 5. Hypertension Postoperative Diagnosis: 1. Acute cholecystitis 2. BMI 58 3. Sepsis, improving 4. Diabetes 5. Hypertension 6. Cirrhotic looking liver 7. Ascites Operation(s) Performed: 1. Laparoscopic cholecystectomy 2. Laparoscopic liver wedge resection biopsy 3. Local anesthetic [place], [id number] 4. Laparoscopic guided bilateral transversus abdominis plane block 5. Very difficult operation, modifier 22 Surgeon: ANGELICA RIVERA MD Anesthesia: general, local, & regional Anesthesiologist: Eugenio Melendez MD Estimated Blood Loss: 250 ml's Specimens: Liver Gallbladder Tubes/Drains: 19 Persian Brody Complications: None Pt Condition Post Procedure: Fair but guarded Disposition: PACU on BiPAP Indications: 67-year-old female with significant comorbidities and sepsis secondary to acute cholecystitis, possible gangrenous cleared by hospitalist to proceed with surgery and here for cholecystectomy. Risks include but are not limited to bleeding, infection, abscess, seroma, damage to intestines, damage to the liver, damage to biliary tree, hernia formation, chronic pain, biloma, need for reoperations or further surgeries, respiratory failure, CT, stroke, PE, DVT, pneumonia, organ failures, or even . Procedure Description: Patient was brought and placed supine on the operating table SCDs were placed, preoperative antibiotics were administered, all pressure points were well-padded , and after induction of anesthesia patient was prepped and draped in usual sterile fashion and timeout was performed. Incision was made in the right upper quadrant region and using Optiview port and a 5 mm 0 scope abdomen was entered and insufflated to 15mmHg. Laparoscopy was performed with a 5 mm 30 scope. No injuries were identified. The liver looks nodular and cirrhotic fashion. Gallbladder is hidden underneath colon and omentum. 12 mm port is placed in subxiphoid under direct visualization followed by 2 other 5 mm ports in the right upper quadrant. All port sites were injected with quarter percent Marcaine with epi and 1% lidocaine prior to any incisions. Bilateral transversus abdominis plane block was performed under laparoscopic visualization to aid with pain control intra-and postoperatively. Patient was placed in reverse Trendelenburg and right side up. With gentle dissection the omentum of colon were pulled off of the very inflamed and possibly gangrenous gallbladder. There was significant inflammation once again. There was significant oozing from all raw surfaces. The gallbladder was retracted superolaterally with significant difficulty. The gallbladder drain and large amount of bile was aspirated. There was ascites and bile within the abdomen around the liver at start of operation as well. The gallbladder was large and distended. Using electrocautery and blunt dissection I was able to identify cystic artery and narrow cystic duct after significant amount of gentle and difficult dissection to identify the structures. The duct tapered into the gallbladder. Full critical angle view was identified. Both structures were transected with Endo SARMAD white load stapler. The gallbladder was meticulously and gently taken off the liver with electrocautery. Hemostasis was obtained. Gallbladder was placed in an Endo Catch bag and removed through the subxiphoid port site. The port site had to be enlarged several times normal to allow very distended gallbladder with a large stone. There was complete hemostasis. Due to the abnormality of the liver decision was made to perform liver wedge resection which was done with electrocautery and scissor with complete hemostasis right after. The specimen was sent to pathology for further evaluation. 19F brody drain was placed through lateral incision to drain the liver and gb sites. 12 mm made port site fascia was closed with Endo Close of an 0 Vicryl in a [id number] manner 3. Ports and CO2 were removed under direct visualization. There was complete hemostasis. Wounds were thoroughly irrigated and skin was closed with kevin. Dressing was applied. Patient was extubated however was having difficulty with respiratory status and placed on BiPAP she was taken to recovery room in fair but guarded condition. All counts were correct and the end of the operation 2 Copies To: CC: SERGIO GARCIA; DOUGLAS SNEED DO; LAUREN CALDERÓN MD; LAVINIA BYRD MD, SAMUEL MD Jan 22, 2017 20:50
[2017-01-22] MEDS ORDERED: ALBUTEROL 0.083% (NEB) 2.5 MG/3 ML AMP ONE (21:02)
[2017-01-22 21:25] LABS: AADO2 Arterial 117.4 mmHg (7.0-24.0); Allen Test ACCEPTAB; Arterial Base Excess -4.8 mmol/L (-3.0-3); Arterial COHb 0.3 % (0.0-3.0); Arterial Fraction of Oxyhgb 95.6 % (93.0-99.0); Arterial HCO3 20.4 mmol/L (22.0-26.0); Arterial MetHb 0.4 % (0.0-1.5); Blood Gas IEPAP 20/8; Blood Gas PS 12; MODE MASK - BIPAP
[2017-01-22] MEDS ORDERED: ALBUTEROL 0.083% (NEB) 2.5 MG/3 ML AMP HHN ONE (21:30)
--- NOTE | 2017-01-22 22:03 | RADRPT ---
PROCEDURE: XR Chest. CLINICAL INDICATION: Shortness of breath. TECHNIQUE: Single frontal chest x-ray. COMPARISON: 01/21/2017 FINDINGS: Heart and mediastinum are mildly enlarged. There is increased mild pulmonary vascular congestion.. There is slight increase in left basilar atelectasis. There is no pleural effusion. There is no p neumothorax. The osseous structures are unremarkable. IMPRESSION: Increased pulmonary vascular congestion. Slight increased left basilar atelectasis RPTAT: HMVK .Josh Adams MD, Date Time Electronically viewed and signed by .Josh Adams MD, on 01/22/2017 22:03 .K/
[2017-01-23] VITALS (13 sets, daily range): BP systolic 102–130; BP diastolic 57–80; PULSE 112–131; RESP 18–22
[2017-01-23] MEDS: FAMOTIDINE 20 MG INJ IV SCH ×3 (00:16→21:10)
[2017-01-23] MEDS: PIPER-TAZO 3.375 GM IV (PMX) 100 ML IVPB SCH ×4 (00:17→18:03)
[2017-01-23] MEDS: INSULIN ASPART [NOVOLOG] 3 ML PEN SC SCH ×6 (02:10→21:12)
[2017-01-23] MEDS: SOD CHLORIDE 0.9% 1,000 ML IV SCH ×3 (03:00→13:00)
[2017-01-23 07:44] LABS: ADD SCAN DIFF NO
[2017-01-23 07:53] LABS: BASOPHIL # 0.1 10^3/ul (0.0-0.1); BASOPHILS % 0.5 % (0.0-2.0); EOSINOPHILS # 0.1 10^3/ul (0.0-0.5); EOSINOPHILS % 0.7 % (0.0-7.0); HEMATOCRIT 38.1 % (37.0-47.0); HEMOGLOBIN 12.2 g/dl (12.0-16.0); LYMPHOCYTES # 1.6 10^3/ul (0.8-2.9); LYMPHOCYTES % 10.8 % (15.0-51.0); MEAN CORPUSCULAR VOLUME 81.1 fl (82.0-101.0); MEAN PLATELET VOLUME 10.4 fl (7.4-10.4); MONOCYTE # 1.1 10^3/ul (0.3-0.9); MONOCYTES % 7.6 % (0.0-11.0); NEUTROPHIL # 11.9 10^3/ul (1.6-7.5); NEUTROPHILS % 79.7 % (39.0-77.0); PLATELET COUNT 326 10^3/UL (140-415); RED CELL DISTRIBUTION WIDTH 14.6 % (11.5-14.5); WHITE BLOOD COUNT 14.9 10^3/ul (4.8-10.8)
[2017-01-23 08:04] LABS: ALBUMIN/GLOBULIN RATIO 0.81; BILIRUBIN,INDIRECT 0.3 mg/dl (0-1.1); BILIRUBIN,TOTAL 0.3 mg/dl (0.2-1.3); CALCIUM 7.6 mg/dl (8.4-10.2); CREATININE 0.87 mg/dl (0.44-1.00); POTASSIUM 3.4 mmol/L (3.5-5.1); TOTAL PROTEIN 6.7 g/dl (6.1-8.1)
[2017-01-23] MEDS: LISINOPRIL 20 MG TAB PO SCH (08:31)
[2017-01-23] MEDS: ENOXAPARIN 40 MG/0.4 ML SYG SC SCH (08:35)
[2017-01-23] MEDS: morphine 4 MG/ML VIAL IV PRN (10:23)
--- NOTE | 2017-01-23 14:49 | PN ---
Date/Time of Note Date/Time of Note DATE: 01/23/17 TIME: 14:46 Assessment/Plan VTE Prophylaxis VTE Prophylaxis Intervention: LMWH Lines/Catheters IV Catheter Type (from Nrs): Peripheral IV Urinary Cath still in place: Yes Reason Cath still needed: other (indicate) Assessment/Plan Assessment/Plan 1. Acute cholecystitis, s/p lap cholecystectomy, on zosyn, PT for ambulating 2. Diabetes mellitus, on insulin 3. Hypertension, lisinopril 4. Lactic acidosis. resolved 5. Fatty liver. 6. Psychiatric disorders 7. DVT prophylaxis: lovenox Subjective 24 Hr Interval Summary Free Text/Dictation no nausea or vomiting. abdominal pain. no passing flatus Exam/Review of Systems Vital Signs Vitals Vital Signs Date Time Temp Pulse Resp B/P Pulse Ox O2 Delivery O2 Flow Rate FiO2 01/23/17 12:09 99.1 121 18 117/63 92 01/23/17 08:27 Nasal Cannula 2.0 01/22/17 21:39 30 Intake and Output 01/22/17 01/22/17 01/23/17 15:00 23:00 07:00 Intake Total 2300 ml 200 ml Output Total 335 ml 750 ml Balance 1965 ml -550 ml Exam Constitutional: alert, obese, oriented, well developed Psych: no complaints Head: atraumatic, normocephalic Eyes: EOMI, PERRL, nl conjunctiva, nl lids ENMT: nl external ears & nose, nl lips & teeth, nl nasal mucosa & septum Neck: non-tender, supple Respiratory: clear to auscultation, normal air movement, No congested cough, No crackles/rales, No diminished breath sounds, No intercostal retraction, No labored breathing, No other, No respirations, No tactile fremitus, No wheezing Cardiovascular: nl pulses, regular rate and rhythm, No S3, No S4, No bruits, No diastolic murmur, No edema, No gallop, No irregular rhythm, No jugular venous distention (JVD), No murmurs/extra sounds, No other, No rub, No systolic murmur Gastrointestinal: nl liver, spleen, soft Musculoskeletal: nl extremities to inspection Neurological: PRINCIPAL 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 II-XII intact, nl mental status, nl speech, nl strength Lymph: nl lymph nodes Results Result Diagram: 01/23/1739 01/23/1739 Results 24 hrs Laboratory Tests Test 01/22/17 15:42 01/22/17 20:58 01/22/17 21:05 01/23/17 01:55 Bedside Glucose 156 176 225 H Blood Gas Specimen Source Blood arterial Arterial Blood Date Drawn 01/22/2017 9:15:56 PM Arterial Blood pH (Temp corrected) 7.341 L Arterial Blood pCO2 (Temp correct) 38.6 Arterial Blood pO2 (Temp corrected) 87.3 Arterial Blood HCO3 20.4 L Arterial Blood Base Excess -4.8 L Arterial Blood Oxygen Saturation 96.3 Rell Test ACCEPTAB Arterial Blood Gas Puncture Site Left Radial Arterial Blood Carboxyhemoglobin 0.3 Arterial Blood Methemoglobin 0.4 Blood Gas A-a O2 Differential 117.4 H Oxyhemoglobin Percent 95.6 Total Hemoglobin 14.0 Blood Gas Temperature 37.0 Blood Gas Respiration Rate 16.0 Blood Gas Actual Respiration Rate 28 Blood Gas Modality MASK - BIPAP FiO2 35.0 Blood Gas Pressure Support 12 Blood Gas IPAP/EPAP Ratio 08/06 Blood Gas Notified Whom MN Blood Gas Notified Time 01/22/2017 9:25:51 PM Test 01/23/17 05:43 01/23/17 06:39 01/23/17 07:59 01/23/17 12:32 Bedside Glucose 191 193 196 White Blood Count 14.9 #H Red Blood Count 4.70 Hemoglobin 12.2 Hematocrit 38.1 Mean Corpuscular Volume 81.1 L Mean Corpuscular Hemoglobin 26.0 L Mean Corpuscular Hemoglobin Concent 32.0 Red Cell Distribution Width 14.6 H Platelet Count 326 # Mean Platelet Volume 10.4 Neutrophils % 79.7 H Lymphocytes % 10.8 L Monocytes % 7.6 Eosinophils % 0.7 Basophils % 0.5 Nucleated Red Blood Cells % 0.0 Neutrophils # 11.9 H Lymphocytes # 1.6 Monocytes # 1.1 H Eosinophils # 0.1 Basophils # 0.1 Nucleated Red Blood Cells # 0.0 Sodium Level 139 Potassium Level 3.4 L Chloride Level 109 Carbon Dioxide Level 22 Anion Gap 11 Blood Urea Nitrogen 10 Creatinine 0.87 Glucose Level 228 H Calcium Level 7.6 L Total Bilirubin 0.3 Direct Bilirubin 0.00 Indirect Bilirubin 0.3 Aspartate Amino Transf (AST/SGOT) 34 Alanine Aminotransferase (ALT/SGPT) 21 Alkaline Phosphatase 135 H Total Protein 6.7 Albumin 3.0 L Globulin 3.70 H Albumin/Globulin Ratio 0.81 Medications Medications Current Medications Ondansetron HCl (Zofran Inj) 4 mg Q4H PRN IV NAUSEA Last administered on 21:23; Admin Dose 4 MG; Start 01/21/17 at 21:30 Morphine Sulfate (morphine) 4 mg Q4H PRN IV PAIN LEVEL 7-10 Last administered on 01/23/17 10:23; Admin Dose 4 MG; Start 01/21/17 at 21:30 Lorazepam (Ativan) 0.5 mg Q1HWA PRN IV ANXIETY Last administered on 01/21/17 21 :24; Admin Dose 0.5 MG; Start 01/21/17 at 21:30 Lorazepam (Ativan) 0.5 mg Q6H PRN IV ANXIETY; Start 01/21/17 at 23:00 Metoclopramide HCl (Reglan) 10 mg Q6H PRN IV NAUSEA AND/OR VOMITING; Start 01/21 at 23:00 Nitroglycerin (Nitroglycerin (Sl Tab) 0.4 Mg) 1 tab Q5M PRN SL CHEST PAIN; Start 01/21/17 at 23:00 Hydromorphone HCl (Dilaudid) 2 mg Q4H PRN IV PAIN LEVEL 7-10; Start 01/21/17 at 23:00 Famotidine (Pepcid Iv) 20 mg Q12 IV Last administered on 01/23/17 08:31; Admin Dose 20 MG; Start 01/21/17 at 23:00 Enoxaparin Sodium (Lovenox) 40 mg DAILY SC Last administered on 01/23/17 08:35 ; Admin Dose 40 MG; Start 01/22/17 at 09:00 Insulin Aspart NOVOLOG *MODERATE* ALGORI... Q4 SC Last administered on 12:38; Admin Dose 4 UNIT; Start 01/22/17 at 01:00 Piperacillin Sod/ Tazobactam Sod (Zosyn 3.375gm/ 100 ml (Pmx)) 100 ml @ 200 mls /hr Q6 IVPB Last administered on 01/23/17 12:37; Admin Dose 200 MLS/HR; Start 01/22/17 at 00:00 Miscellaneous Information 1 ea NOTE XX ; Start 01/21/17 at 23:30 Glucose (Glutose) 15 gm Q15M PRN PO DECREASED GLUCOSE; Start 01/21/17 at 23:30 Glucose (Glutose) 22.5 gm Q15M PRN PO DECREASED GLUCOSE; Start 01/21/17 at 23:30 Dextrose (D50w Syringe) 25 ml Q15M PRN IV DECREASED GLUCOSE; Start 01/21/17 at 23:30 Dextrose (D50w Syringe) 50 ml Q15M PRN IV DECREASED GLUCOSE; Start 01/21/17 at 23:30 Glucagon (Glucagen) 1 mg Q15M PRN IM DECREASED GLUCOSE; Start 01/21/17 at 23:30 Glucose 15 gm 15 gm Q15M PRN BUCCAL DECREASED GLUCOSE; Start 01/21/17 at 23:30 Sodium Chloride (NS) 1,000 ml @ 100 mls/hr Q10H IV Last administered on 13:00; Admin Dose 100 MLS/HR; Start 01/22/17 at 07:00 Hydralazine HCl (Apresoline) 10 mg Q6H PRN IV SBP>160 Last administered on 21:14; Admin Dose 10 MG; Start 01/22/17 at 08:30 Lisinopril (Zestril) 20 mg DAILY PO Last administered on 01/23/17 08:31; Admin Dose 20 MG; Start 01/22/17 at 14:30 Insulin Glargine (Lantus) 10 unit DAILY@20 SC Last administered on 01/22/17 15: 45; Admin Dose 10 UNIT; Start 01/22/17 at 14:00 LAVINIA BYRD MD Jan 23, 2017 14:49
[2017-01-23] MEDS: METOPROLOL 25 MG TAB PO SCH (21:09)
[2017-01-23] MEDS: INSULIN GLARGINE [LANtus] 3 ML PEN SC SCH (21:14)
[2017-01-24] VITALS (12 sets, daily range): BP systolic 126–168; BP diastolic 57–80; PULSE 90–118; RESP 16–22
[2017-01-24] MEDS: SOD CHLORIDE 0.9% 1,000 ML IV SCH ×2 (00:02→15:27)
[2017-01-24] MEDS: INSULIN ASPART [NOVOLOG] 3 ML PEN SC SCH ×7 (01:28→21:00)
[2017-01-24] MEDS: PIPER-TAZO 3.375 GM IV (PMX) 100 ML IVPB SCH ×4 (01:35→19:03)
[2017-01-24 01:38] LABS: CK-MB 0.37 ng/ml (0.0-2.4); TROPONIN-I 0.026 ng/ml (0.00-0.12)
--- NOTE | 2017-01-24 03:21 | CONS ---
DATE OF ADMISSION: 01/21/2017 DATE OF CONSULTATION: 01/23/2017 CARDIOLOGY CONSULT REASON FOR CONSULTATION: Tachycardia. REQUESTING PHYSICIANS: Dr. Sarah from the hospitalist service and Dr. Davila from the surgical department. HISTORY OF PRESENT ILLNESS: Ms. Montemayor is a 67-year-old female with a history of diabetes mellitus, dyslipidemia, bipolar disorder, schizoaffective disorder, cholelithiasis, who had initially presented with abdominal pain. Upon arrival, temperature 98.4, blood pressure 138/102, pulse 138, respiratory rate 24, satting 91%. The patient's labs had a white count of 14.3, hemoglobin 13.6, platelet count 311. Sodium 138, potassium 3.2, creatinine of 0.66, BUN 7. Troponin negative. TSH 2.010. ABG: Revealing a pH of 7.34, a PaO2 of 87, pCO2 of 38. INR of 1.1. The patient underwent a chest x-ray revealing mild bibasilar atelectasis, left greater than right. The patient underwent abdominopelvic CT revealing acute cholecystitis, fatty infiltration of the liver , and a small amount of free fluid over the liver. The patient had a followup chest x-ray today revealing increased pulmonary vascular congestion. The patient was subsequently admitted to the floor, and prior to surgery, underwent a 2D echo revealing an EF of 65%, with diastolic dysfunction, trace mitral and tricuspid regurgitation. The patient was then taken to the OR and underwent laparoscopic cholecystectomy, laparoscopic liver wedge resection biopsy, due to worsening cholecystitis and sepsis. The patient postoperatively was then admitted back to the floor, and since admitted to floor has been noted to have tachycardia initially up to the 140s, most recently has been in the 110s-120s, with telemetry strips and EKG most probably consistent with sinus tachycardia. The patient at this time is complaining of abdominal pain. PAST MEDICAL HISTORY: As above in HPI. MEDICATIONS CURRENTLY IN HOSPITAL: 1. Zestril 20 mg daily. 2. Lantus. 3. Lovenox ____ subQ daily. 4. Hydralazine p.r.n. 5. IV fluid hydration at 100 mL an hour. 6. Zosyn IV. 7. Morphine p.r.n. 8. Ativan p.r.n. 9. Pepcid p.r.n. 10. Dilaudid p.r.n. ALLERGIES: NO KNOWN DRUG ALLERGIES. SOCIAL HISTORY: No tobacco, ETOH, or illicit drug use. FAMILY HISTORY: No history of sudden cardiac or early CAD. REVIEW OF SYSTEMS: As above in HPI. CONSTITUTIONAL: No fevers. PULMONARY: No current signs of respiratory compromise. GASTROINTESTINAL: Abdominal pain, status post laparoscopic cholecystectomy. GENITOURINARY: No hematuria. MUSCULOSKELETAL: Degenerative joint disease. PSYCHIATRIC: Positive psychiatric history. NEUROLOGIC: No documented history of CVA. ENDOCRINE: Diabetes mellitus. PHYSICAL EXAMINATION: VITAL SIGNS: Temperature of 99, blood pressure of 117/57, pulse 114, satting 92 % on 3 liters. GENERAL: The patient is alert, awake, complaining of abdominal pain. NECK: No jugular venous distention. CHEST: Decreased breath sounds at the bases bilaterally. HEART: Tachycardic, regular rhythm, normal S1, S2, a I/ systolic murmur, nondisplaced PMI. ABDOMEN: Positive bowel sounds. Positive significantly tender to palpation in the laparoscopic cholecystectomy. EXTREMITIES: Trace edema, 1+ pulses bilaterally posterior tibial. LABORATORY DATA: As above in HPI with most recently from today, sodium 139, potassium 3.4, creatinine 0.8, BUN 10. AST 34, ALT 21, alk phos 135. White blood cell count 14.9, hemoglobin 12.2, platelet count of 326. IMAGING STUDIES: As above in HPI. No further imaging studies for my review at this time. ELECTROCARDIOGRAM: As above in HPI, with most recently from today revealing normal sinus rhythm, rate 91, normal axis, normal intervals, with inferior T- wave inversion isolated to lead III. IMPRESSION: 1. Tachycardia, most consistent with sinus tachycardia at this time, likely driven by significant pain and underlying infection. 2. Abnormal electrocardiogram, assess for acute coronary syndrome. 3. Hypertension, currently under improved control on Zestril. 4. Status post laparoscopic cholecystectomy, postop day #1. 5. Systemic inflammatory response syndrome. 6. Bacteremia. 7. Sepsis with gram-positive cocci growing in blood cultures. 8. Leukocytosis. 9. Diabetes mellitus. RECOMMENDATIONS: 1. At this time, would maintain the patient on telemetry monitoring to follow the rhythm and rate control closely. 2. Would initiate patient on low-dose beta barron for patient comfort and improvement in heart rate control, and decrease the patient's Zestril to assure that she tolerates the beta-barron well. 3. Continue the patient's IV fluid hydration at this time, but follow volume status closely given possible pulmonary vascular congestion by chest x-ray, and therefore will decrease rate of IV fluid hydration at this time. 4. Would complete a rule out for myocardial infarction to be sure the patient has not provoked any acute coronary syndrome in the setting of tachycardia, sepsis, and the stress of surgery. 5. Continue the patient's antibiotics and follow up all culture data. 6. Pain control. 7. Continue to check serial EKGs to assess for any significant ongoing changes.. Thus EKG in the morning, EKG for any complaints of chest pain or change in rhythm. Thank you for allowing me to take part in the care of this patient. I will continue to follow along very closely with you. Further recommendations will be made as the patient progresses through her inpatient hospital course. Dictated By: SERGIO COLLIER/REHAN Conf#: [id number] DID#: [id number] CC: ANGELICA DAVILA MD; Dr. Sarah;*End* MTDD
[2017-01-24 08:18] LABS: ADD SCAN DIFF NO
[2017-01-24 08:26] LABS: BASOPHILS % 0.3 % (0.0-2.0); EOSINOPHILS # 0.1 10^3/ul (0.0-0.5); HEMATOCRIT 35.4 % (37.0-47.0); HEMOGLOBIN 11.4 g/dl (12.0-16.0); LYMPHOCYTES # 1.1 10^3/ul (0.8-2.9); MEAN CORPUSCULAR HGB CONC 32.2 g/dl (32.0-37.0); MEAN CORPUSCULAR VOLUME 80.6 fl (82.0-101.0); MONOCYTE # 1.1 10^3/ul (0.3-0.9); MONOCYTES % 9.4 % (0.0-11.0); NEUTROPHILS % 78.9 % (39.0-77.0); PLATELET COUNT 336 10^3/UL (140-415); RED BLOOD COUNT 4.39 10^6/ul (4.20-5.40); RED CELL DISTRIBUTION WIDTH 14.2 % (11.5-14.5); WHITE BLOOD COUNT 11.4 10^3/ul (4.8-10.8)
[2017-01-24 08:49] LABS: CHOL/HDL RATIO 4.1 RATIO
[2017-01-24 08:51] LABS: CALCIUM 7.6 mg/dl (8.4-10.2); CREATININE 0.88 mg/dl (0.44-1.00); POTASSIUM 3.3 mmol/L (3.5-5.1)
[2017-01-24 08:57] LABS: CK-MB 0.46 ng/ml (0.0-2.4); TROPONIN-I 0.021 ng/ml (0.00-0.12)
[2017-01-24] MEDS: FAMOTIDINE 20 MG INJ IV SCH ×2 (09:42→21:11)
[2017-01-24] MEDS: LISINOPRIL 10 MG TAB PO SCH (09:43)
[2017-01-24] MEDS: METOPROLOL 25 MG TAB PO SCH ×2 (09:43→21:12)
[2017-01-24] MEDS: ENOXAPARIN 40 MG/0.4 ML SYG SC SCH (09:44)
--- NOTE | 2017-01-24 13:33 | PN ---
Date/Time of Note Date/Time of Note DATE: 01/23/17 TIME: 22:29 Assessment/Plan Lines/Catheters IV Catheter Type (from [facility]): Peripheral IV Paredes in Place (from [facility]): Yes Assessment/Plan Chief Complaint/Hosp Course 1. Abdominal pain, leukocytosis and CT findings with acute significant cholecystitis s/p lap nathan 01/22 -Antibiotics -Judicious fluid management -Drain 2. Possible sepsis secondary to above. Continue antibiotics judicious fluid management and medical optimization. 3. Morbid obesity with body mass index of 51. The patient is highly encouraged to eventually optimize her nutrition and exercise to improve her overall health status. 4. Psychiatric disorders with bipolar, depression and schizophrenia. Continue medical and psychiatric optimization. 5. Diabetes. Continue diet and medication control and encourage weight loss. 6. Hypertension. Continue diet and medication control and encourage weight loss. 7. Lactic acidosis secondary to #1 and #2. Improved. Thank you, Late entry 01/23 Problems: Subjective 24 Hr Interval Summary s/p lap nathan 01/22. Pain persists. No nausea or vomiting. No fevers or chills. No chest pain or shortness of breath. No visual neurologic changes. No dysuria. No cough. No seizure. No blood per mouth or rectum. Bowel function. Exam/Review of Systems Vital Signs Vitals Vital Signs Date Time Temp Pulse Resp B/P Pulse Ox O2 Delivery O2 Flow Rate FiO2 01/24/17 12:27 100 01/24/17 11:17 97.8 22 127/80 95 01/24/17 04:50 3.0 01/23/17 22:00 Nasal Cannula 01/22/17 21:39 30 Intake and Output 01/23/17 01/23/17 01/24/17 15:00 23:00 07:00 Intake Total 800 ml 900 ml Output Total 640 ml 4 ml Balance 160 ml 896 ml Exam Free Text/Dictation GENERAL: Morbidly obese, no acute distress. HEENT: Pupils equal, reactive. No scleral icterus. Mucous membranes are moist. NECK: Supple, obese, no JVD observable. PULMONARY: Normal respiratory effort. No wheezing. CARDIAC: S1, S2 present and tachy. ABDOMEN: Soft, morbidly obese, min tender. No rebound, no guarding, not rigid. Drain serosang. EXTREMITIES: With edema. VASCULAR: Cap refill is 2 seconds. NEUROLOGIC: Alert and oriented, moves all 4 extremities grossly. LYMPHATICS: No inguinal or cervical ln PSYCH: Flat affect Results Result Diagram: 01/24/17 0700 01/24/17 0700 ANGELICA RIVERA MD Jan 24, 2017 13:33
--- NOTE | 2017-01-24 13:34 | PN ---
Date/Time of Note Date/Time of Note DATE: 01/24/17 TIME: 13:33 Assessment/Plan Lines/Catheters IV [facility]ter Type (from [facility]): Peripheral IV Paredes in Place (from [facility]): Yes Assessment/Plan Chief Complaint/Hosp Course 1. Abdominal pain, leukocytosis and CT findings with acute significant cholecystitis s/p lap nathan 01/22 -Antibiotics -Judicious fluid management -Drain 2. Possible sepsis secondary to above. Continue antibiotics judicious fluid management and medical optimization. Improving 3. Morbid obesity with body mass index of 51. The patient is highly encouraged to eventually optimize her nutrition and exercise to improve her overall health status. 4. Psychiatric disorders with bipolar, depression and schizophrenia. Continue medical and psychiatric optimization. 5. Diabetes. Continue diet and medication control and encourage weight loss. 6. Hypertension. Continue diet and medication control and encourage weight loss. Thank you, Problems: Subjective 24 Hr Interval Summary s/p Lap nathan 01/22. Some abdominal pain. No nausea or vomiting. No fevers or chills. No chest pain or shortness of breath. No visual neurologic changes. No dysuria. No cough. No seizure. No blood per mouth or rectum. Bowel function. Exam/Review of Systems Vital Signs Vitals Vital Signs Date Time Temp Pulse Resp B/P Pulse Ox O2 Delivery O2 Flow Rate FiO2 01/24/17 12:27 100 01/24/17 11:17 97.8 22 127/80 95 01/24/17 04:50 3.0 01/23/17 22:00 Nasal Cannula 01/22/17 21:39 30 Intake and Output 01/23/17 01/23/17 01/24/17 15:00 23:00 07:00 Intake Total 800 ml 900 ml Output Total 640 ml 4 ml Balance 160 ml 896 ml Exam Free Text/Dictation GENERAL: Morbidly obese, no acute distress. HEENT: Pupils equal, reactive. No scleral icterus. Mucous membranes are moist. NECK: Supple, obese, no JVD observable. PULMONARY: Normal respiratory effort. No wheezing. CARDIAC: S1, S2 present and tachy. ABDOMEN: Soft, morbidly obese, min tender. No rebound, no guarding, not rigid. Drain serosang. EXTREMITIES: With edema. VASCULAR: Cap refill is 2 seconds. NEUROLOGIC: Alert and oriented, moves all 4 extremities grossly. LYMPHATICS: No inguinal or cervical ln PSYCH: Flat affect Results Result Diagram: 01/24/17 0701/24/17 0700 ANGELICA RIVERA MD Jan 24, 2017 13:34
--- NOTE | 2017-01-24 15:28 | RADRPT ---
Vent Rate: 91 bpm RR Interval: 0 msec AL Interval: 174 msec QRS Duration: 86 msec QT Interval: 400 msec QTC Interval: 492 msec P-R-T [place]: 36 - -4 - 19 degrees Normal sinus rhythm Prolonged QT Abnormal ECG Electronically Signed By: Cyril Ash [id number]
--- NOTE | 2017-01-24 15:39 | RADRPT ---
Vent Rate: 104 bpm RR Interval: 0 msec MD Interval: 172 msec QRS Duration: 92 msec QT Interval: 376 msec QTC Interval: 494 msec P-R-T [place]: 48 - -20 - 26 degrees Sinus tachycardia Otherwise normal ECG Electronically Signed By: Cyril Ash [id number]
[2017-01-24] MEDS ORDERED: POTASSIUM CHLORIDE (SR) 20 MEQ TAB PO STA (15:43)
--- NOTE | 2017-01-24 16:14 | CONS ---
Date/Time of Note Date/Time of Note DATE: 01/24/17 TIME: 16:08 Assessment/Plan Assessment/Plan Chief Complaint/Hosp Course IMPRESSION: 1. Tachycardia, most consistent with sinus tachycardia at this time, likely driven by significant pain and underlying infection. 2. Abnormal electrocardiogram, assess for acute coronary syndrome. 3. Hypertension, currently under improved control on ACEI/BB 4. Status post laparoscopic cholecystectomy, postop day #1. 5. Systemic inflammatory response syndrome. 6. Bacteremia. 7. Sepsis with gram-positive cocci growing in blood cultures. 8. Leukocytosis. 9. Diabetes mellitus. Recc: -Tele -serial ecg's -Continue BB/ACEI as tolerated -Continue abx's/f/u cx data Problems: Consultation Date/Type/Reason Admit Date/Time Jan 21, 2017 at 19:47 Initial Consult Date 01/23/2017 Type of Consultation: Cardiology Reason for Consultation tachycardia Referring Provider: ANGELICA RIVERA MD Exam/Review of Systems Vital Signs Vitals Vital Signs Date Time Temp Pulse Resp B/P Pulse Ox O2 Delivery O2 Flow Rate FiO2 01/24/17 15:28 98.0 70 16 126/66 97 01/24/17 07:35 Nasal Cannula 3.0 01/22/17 21:39 30 Intake and Output 01/23/17 01/23/17 01/24/17 15:00 23:00 07:00 Intake Total 800 ml 900 ml Output Total 640 ml 4 ml Balance 160 ml 896 ml Exam Review of Systems: CONSTITUTIONAL: No fevers, chills. PULMONARY: No sob CARDIOVASCULAR: No chest pain/palpitations GASTROINTESTINAL: c/p abd pain GENITOURINARY: No hematuria/dysuria. MUSCULOSKELETAL: No myagias/arthalgias. PSYCHIATRIC: The patient denies depression. NEUROLOGIC: No weakness Constitutional: alert Psych: no complaints Head: normocephalic ENMT: mucosa pink and moist Neck: jvd (9 cm water), supple Respiratory: diminished breath sounds (at bases/B) Cardiovascular: regular rate and rhythm Gastrointestinal: soft, tender (RUQ) Musculoskeletal: muscle tone (normal) Extremities: edema (trace/B) Neurological: other (NO focal deficits) Results Result Diagram: 01/24/17 0700 01/24/17 0700 Results 24 hrs Laboratory Tests Test 01/23/17 17:09 01/23/17 21:07 01/24/17 00:42 01/24/17 01:17 Bedside Glucose 193 230 H 204 Creatine Kinase 137 Creatine Kinase Index 0.3 Creatinine Kinase MB (Mass) 0.37 Troponin I 0.026 Test 01/24/17 05:31 01/24/17 07:00 01/24/17 07:58 01/24/17 12:25 Bedside Glucose 191 167 208 White Blood Count 11.4 #H Red Blood Count 4.39 Hemoglobin 11.4 L Hematocrit 35.4 L Mean Corpuscular Volume 80.6 L Mean Corpuscular Hemoglobin 26.0 L Mean Corpuscular Hemoglobin Concent 32.2 Red Cell Distribution Width 14.2 Platelet Count 336 Mean Platelet Volume 10.0 Neutrophils % 78.9 H Lymphocytes % 10.0 L Monocytes % 9.4 Eosinophils % 1.0 Basophils % 0.3 Nucleated Red Blood Cells % 0.0 Neutrophils # 9.0 H Lymphocytes # 1.1 Monocytes # 1.1 H Eosinophils # 0.1 Basophils # 0.0 Nucleated Red Blood Cells # 0.0 Sodium Level 140 Potassium Level 3.3 L Chloride Level 109 Carbon Dioxide Level 22 Anion Gap 12 Blood Urea Nitrogen 11 Creatinine 0.88 Glucose Level 214 Calcium Level 7.6 L Creatine Kinase 126 Creatine Kinase Index 0.4 Creatinine Kinase MB (Mass) 0.46 Troponin I 0.021 Triglycerides Level 91 Cholesterol Level 88 L LDL Cholesterol, Calculated 49 HDL Cholesterol 21 L Cholesterol/HDL Ratio 4.1 Medications Medications Current Medications Ondansetron HCl (Zofran Inj) 4 mg Q4H PRN IV NAUSEA Last administered on 21:23; Admin Dose 4 MG; Start 01/21/17 at 21:30 Morphine Sulfate (morphine) 4 mg Q4H PRN IV PAIN LEVEL 7-10 Last administered on 01/23/17 10:23; Admin Dose 4 MG; Start 01/21/17 at 21:30 Lorazepam (Ativan) 0.5 mg Q1HWA PRN IV ANXIETY Last administered on 01/21/17 21 :24; Admin Dose 0.5 MG; Start 01/21/17 at 21:30 Lorazepam (Ativan) 0.5 mg Q6H PRN IV ANXIETY; Start 01/21/17 at 23:00 Metoclopramide HCl (Reglan) 10 mg Q6H PRN IV NAUSEA AND/OR VOMITING; Start 01/21 at 23:00 Nitroglycerin (Nitroglycerin (Sl Tab) 0.4 Mg) 1 tab Q5M PRN SL CHEST PAIN; Start 01/21/17 at 23:00 Hydromorphone HCl (Dilaudid) 2 mg Q4H PRN IV PAIN LEVEL 7-10; Start 01/21/17 at 23:00 Famotidine (Pepcid Iv) 20 mg Q12 IV Last administered on 01/24/17 09:42; Admin Dose 20 MG; Start 01/21/17 at 23:00 Enoxaparin Sodium (Lovenox) 40 mg DAILY SC Last administered on 01/24/17 09:44 ; Admin Dose 40 MG; Start 01/22/17 at 09:00 Insulin Aspart NOVOLOG *MODERATE* ALGORI... Q4 SC Last administered on 12:42; Admin Dose 4 UNIT; Start 01/22/17 at 01:00 Piperacillin Sod/ Tazobactam Sod (Zosyn 3.375gm/ 100 ml (Pmx)) 100 ml @ 200 mls /hr Q6 IVPB Last administered on 01/24/17 12:21; Admin Dose 200 MLS/HR; Start 01/22/17 at 00:00 Miscellaneous Information 1 ea NOTE XX ; Start 01/21/17 at 23:30 Glucose (Glutose) 15 gm Q15M PRN PO DECREASED GLUCOSE; Start 01/21/17 at 23:30 Glucose (Glutose) 22.5 gm Q15M PRN PO DECREASED GLUCOSE; Start 01/21/17 at 23:30 Dextrose (D50w Syringe) 25 ml Q15M PRN IV DECREASED GLUCOSE; Start 01/21/17 at 23:30 Dextrose (D50w Syringe) 50 ml Q15M PRN IV DECREASED GLUCOSE; Start 01/21/17 at 23:30 Glucagon (Glucagen) 1 mg Q15M PRN IM DECREASED GLUCOSE; Start 01/21/17 at 23:30 Glucose 15 gm 15 gm Q15M PRN BUCCAL DECREASED GLUCOSE; Start 01/21/17 at 23:30 Sodium Chloride (NS) 1,000 ml @ 75 mls/hr [id number] IV Last administered on 15:27; Admin Dose 75 MLS/HR; Start 01/22/17 at 07:00 Hydralazine HCl (Apresoline) 10 mg Q6H PRN IV SBP>160 Last administered on 21:14; Admin Dose 10 MG; Start 01/22/17 at 08:30 Lisinopril (Zestril) 10 mg DAILY PO Last administered on 01/24/17 09:43; Admin Dose 10 MG; Start 01/24/17 at 09:00 Metoprolol Tartrate (Lopressor) 25 mg BID PO Last administered on 01/24/17 09: 43; Admin Dose 25 MG; Start 01/23/17 at 21:00 Insulin Glargine (Lantus) 21 unit DAILY@20 SC ; Start 01/24/17 at 20:00 SERGIO GARCIA Jan 24, 2017 16:14
[2017-01-24] MEDS: INSULIN GLARGINE [LANtus] 3 ML PEN SC SCH (21:22)
[2017-01-25] VITALS (12 sets, daily range): BP systolic 134–150; BP diastolic 63–74; PULSE 72–85; RESP 17–18
[2017-01-25] MEDS: INSULIN ASPART [NOVOLOG] 3 ML PEN SC SCH ×6 (01:00→17:17)
[2017-01-25] MEDS: PIPER-TAZO 3.375 GM IV (PMX) 100 ML IVPB SCH ×4 (01:03→17:18)
[2017-01-25] MEDS: SOD CHLORIDE 0.9% 1,000 ML IV SCH ×3 (05:40→20:47)
[2017-01-25 07:52] LABS: ADD SCAN DIFF NO; BASOPHILS % 0.2 % (0.0-2.0); EOSINOPHILS # 0.5 10^3/ul (0.0-0.5); EOSINOPHILS % 5.6 % (0.0-7.0); HEMATOCRIT 32.3 % (37.0-47.0); HEMOGLOBIN 10.4 g/dl (12.0-16.0); LYMPHOCYTES # 1.6 10^3/ul (0.8-2.9); LYMPHOCYTES % 18.9 % (15.0-51.0); MEAN CORPUSCULAR HGB CONC 32.2 g/dl (32.0-37.0); MEAN CORPUSCULAR VOLUME 80.8 fl (82.0-101.0); MEAN PLATELET VOLUME 9.6 fl (7.4-10.4); MONOCYTE # 0.8 10^3/ul (0.3-0.9); MONOCYTES % 8.9 % (0.0-11.0); NEUTROPHIL # 5.6 10^3/ul (1.6-7.5); PLATELET COUNT 242 10^3/UL (140-415); RED CELL DISTRIBUTION WIDTH 14.4 % (11.5-14.5); WHITE BLOOD COUNT 8.4 10^3/ul (4.8-10.8)
[2017-01-25 08:01] LABS: POTASSIUM 3.3 mmol/L (3.5-5.1)
[2017-01-25 08:03] LABS: CREATININE 0.85 mg/dl (0.44-1.00)
[2017-01-25 08:04] LABS: CALCIUM 7.5 mg/dl (8.4-10.2)
[2017-01-25] MEDS: LISINOPRIL 10 MG TAB PO SCH (08:59)
[2017-01-25] MEDS: FAMOTIDINE 20 MG INJ IV SCH (08:59)
[2017-01-25] MEDS: METOPROLOL 25 MG TAB PO SCH ×2 (09:00→20:47)
[2017-01-25] MEDS: ENOXAPARIN 40 MG/0.4 ML SYG SC SCH (09:00)
--- NOTE | 2017-01-25 11:36 | PN ---
Date/Time of Note Date/Time of Note DATE: 01/25/17 TIME: 11:34 Assessment/Plan VTE Prophylaxis VTE Prophylaxis Intervention: heparin Lines/Catheters IV Catheter Type (from Nrs): Peripheral IV Central line still needed: Yes Urinary Cath still in place: Yes Reason Cath still needed: urinary retention Assessment/Plan Chief Complaint/Hosp Course Assessment and plan 1. Acute cholecystitis, s/p lap cholecystectomy, on zosyn, PT for ambulating 2. Diabetes mellitus, on insulin 3. Hypertension, lisinopril 4. Lactic acidosis. resolved 5. Fatty liver. 6. Psychiatric disorders 7. DVT prophylaxis: lovenox Discussed with son at bedside he is requested senior living facility Problems: Subjective 24 Hr Interval Summary Free Text/Dictation Patient remains mostly bedbound limited mobility Decreased abdominal pain Exam/Review of Systems Vital Signs Vitals Vital Signs Date Time Temp Pulse Resp B/P Pulse Ox O2 Delivery O2 Flow Rate FiO2 01/25/17 08:39 85 01/25/17 08:20 Nasal Cannula 3.0 01/25/17 07:32 98.9 17 143/70 92 01/22/17 21:39 30 Intake and Output 01/24/17 01/24/17 01/25/17 15:00 23:00 07:00 Intake Total 610 ml 1275 ml Output Total 550 ml Balance 60 ml 1275 ml Exam GENERAL: Elderly Frisian lady comfortable at rest VITAL SIGNS: per chart NECK: Supple. No JVD or lymphadenopathy. CARDIAC EXAM: S1, S2. No added sounds or murmurs. CHEST: clear bilaterally, No added sounds, rales or wheezes ABDOMEN: Soft, nontender. No guarding or rebound. EXTREMITIES: No cyanosis, clubbing edema +1 NEUROLOGIC: Generalized weakness. Results Result Diagram: 01/25/17 0500 01/25/17 0705 Results 24 hrs Laboratory Tests Test 01/24/17 12:25 01/24/17 17:14 01/24/17 19:59 01/25/17 01:12 Bedside Glucose 208 205 165 131 Test 01/25/17 05:00 01/25/17 05:56 01/25/17 07:05 01/25/17 08:05 White Blood Count 8.4 # Red Blood Count 4.00 L Hemoglobin 10.4 L Hematocrit 32.3 L Mean Corpuscular Volume 80.8 L Mean Corpuscular Hemoglobin 26.0 L Mean Corpuscular Hemoglobin Concent 32.2 Red Cell Distribution Width 14.4 Platelet Count 242 # Mean Platelet Volume 9.6 Neutrophils % 66.0 Lymphocytes % 18.9 Monocytes % 8.9 Eosinophils % 5.6 Basophils % 0.2 Nucleated Red Blood Cells % 0.0 Neutrophils # 5.6 Lymphocytes # 1.6 Monocytes # 0.8 Eosinophils # 0.5 Basophils # 0.0 Nucleated Red Blood Cells # 0.0 Bedside Glucose 143 149 Sodium Level 141 Potassium Level 3.3 L Chloride Level 108 Carbon Dioxide Level 22 Anion Gap 14 Blood Urea Nitrogen 12 Creatinine 0.85 Glucose Level 165 Calcium Level 7.5 L Medications Medications Current Medications Ondansetron HCl (Zofran Inj) 4 mg Q4H PRN IV NAUSEA Last administered on 21:23; Admin Dose 4 MG; Start 01/21/17 at 21:30 Morphine Sulfate (morphine) 4 mg Q4H PRN IV PAIN LEVEL 7-10 Last administered on 01/23/17 10:23; Admin Dose 4 MG; Start 01/21/17 at 21:30 Lorazepam (Ativan) 0.5 mg Q1HWA PRN IV ANXIETY Last administered on 01/21/17 21 :24; Admin Dose 0.5 MG; Start 01/21/17 at 21:30 Lorazepam (Ativan) 0.5 mg Q6H PRN IV ANXIETY; Start 01/21/17 at 23:00 Metoclopramide HCl (Reglan) 10 mg Q6H PRN IV NAUSEA AND/OR VOMITING; Start 01/21 at 23:00 Nitroglycerin (Nitroglycerin (Sl Tab) 0.4 Mg) 1 tab Q5M PRN SL CHEST PAIN; Start 01/21/17 at 23:00 Hydromorphone HCl (Dilaudid) 2 mg Q4H PRN IV PAIN LEVEL 7-10; Start 01/21/17 at 23:00 Famotidine (Pepcid Iv) 20 mg Q12 IV Last administered on 01/25/17 08:59; Admin Dose 20 MG; Start 01/21/17 at 23:00 Enoxaparin Sodium (Lovenox) 40 mg DAILY SC Last administered on 01/25/17 09:00 ; Admin Dose 40 MG; Start 01/22/17 at 09:00 Insulin Aspart NOVOLOG *MODERATE* ALGORI... Q4 SC Last administered on 09:01; Admin Dose 2 UNIT; Start 01/22/17 at 01:00 Piperacillin Sod/ Tazobactam Sod (Zosyn 3.375gm/ 100 ml (Pmx)) 100 ml @ 200 mls /hr Q6 IVPB Last administered on 01/25/17 05:40; Admin Dose 200 MLS/HR; Start 01/22/17 at 00:00 Miscellaneous Information 1 ea NOTE XX ; Start 01/21/17 at 23:30 Glucose (Glutose) 15 gm Q15M PRN PO DECREASED GLUCOSE; Start 01/21/17 at 23:30 Glucose (Glutose) 22.5 gm Q15M PRN PO DECREASED GLUCOSE; Start 01/21/17 at 23:30 Dextrose (D50w Syringe) 25 ml Q15M PRN IV DECREASED GLUCOSE; Start 01/21/17 at 23:30 Dextrose (D50w Syringe) 50 ml Q15M PRN IV DECREASED GLUCOSE; Start 01/21/17 at 23:30 Glucagon (Glucagen) 1 mg Q15M PRN IM DECREASED GLUCOSE; Start 01/21/17 at 23:30 Glucose 15 gm 15 gm Q15M PRN BUCCAL DECREASED GLUCOSE; Start 01/21/17 at 23:30 Sodium Chloride (NS) 1,000 ml @ 75 mls/hr [id number] IV Last administered on 05:40; Admin Dose 75 MLS/HR; Start 01/22/17 at 07:00 Hydralazine HCl (Apresoline) 10 mg Q6H PRN IV SBP>160 Last administered on 21:14; Admin Dose 10 MG; Start 01/22/17 at 08:30 Lisinopril (Zestril) 10 mg DAILY PO Last administered on 01/25/17 08:59; Admin Dose 10 MG; Start 01/24/17 at 09:00 Metoprolol Tartrate (Lopressor) 25 mg BID PO Last administered on 01/25/17 09: 00; Admin Dose 25 MG; Start 01/23/17 at 21:00 Insulin Glargine (Lantus) 21 unit DAILY@20 SC Last administered on 4/7/17at 21: 22; Admin Dose 21 UNIT; Start 01/24/17 at 20:00 ISIDORO SEVILLA MD[facility] Jan 25, 2017 11:36
[2017-01-25] MEDS ORDERED: POTASSIUM CHLORIDE (SR) 20 MEQ TAB PO STA (11:44)
[2017-01-25] MEDS ORDERED: Insulin NOVOLOG SS MODERATE Algorithm (SS with meals and bedtime) SC SCH (12:00)
[2017-01-25] MEDS: Insulin NOVOLOG SS MODERATE Algorithm (SS with meals and bedtime) SC SCH ×3 (12:10→20:52)
--- NOTE | 2017-01-25 17:04 | CONS ---
Date/Time of Note Date/Time of Note DATE: 01/25/17 TIME: 17:02 Assessment/Plan Assessment/Plan Chief Complaint/Hosp Course IMPRESSION: 1. Tachycardia, most consistent with sinus tachycardia at this time, likely driven by significant pain and underlying infection. 2. Abnormal electrocardiogram, assess for acute coronary syndrome. 3. Hypertension, currently under improved control on ACEI/BB 4. Status post laparoscopic cholecystectomy, postop day #2. 5. Systemic inflammatory response syndrome. 6. Bacteremia. 7. Sepsis with gram-positive cocci growing in blood cultures. 8. Leukocytosis. 9. Diabetes mellitus. Recc: -Tele -serial ecg's -Continue BB/ACEI with reasonable BP and HR control -Continue abx's/f/u cx data Problems: Consultation Date/Type/Reason Admit Date/Time Jan 21, 2017 at 19:47 Initial Consult Date 01/23/2017 Type of Consultation: Cardiology Reason for Consultation Tachycardia/HTN Referring Provider: ANGELICA RIVERA MD Exam/Review of Systems Vital Signs Vitals Vital Signs Date Time Temp Pulse Resp B/P Pulse Ox O2 Delivery O2 Flow Rate FiO2 01/25/17 16:16 78 01/25/17 16:00 98.7 18 145/68 96 01/25/17 08:20 Nasal Cannula 3.0 01/22/17 21:39 30 Intake and Output 01/24/17 01/24/17 01/25/17 15:00 23:00 07:00 Intake Total 610 ml 1275 ml Output Total 550 ml Balance 60 ml 1275 ml Exam Review of Systems: CONSTITUTIONAL: No fevers, chills. PULMONARY: No sob CARDIOVASCULAR: No chest pain/palpitations GASTROINTESTINAL: MIld abd pain GENITOURINARY: No hematuria/dysuria. MUSCULOSKELETAL: No myagias/arthalgias. PSYCHIATRIC: The patient denies depression. NEUROLOGIC: No weakness Constitutional: alert Psych: no complaints Head: normocephalic ENMT: mucosa pink and moist Neck: jvd, supple Respiratory: diminished breath sounds Cardiovascular: regular rate and rhythm Gastrointestinal: soft Musculoskeletal: muscle tone Extremities: edema (none) Neurological: other (No focal deficits) Results Result Diagram: 01/25/17 0500 01/25/17 0705 Results 24 hrs Laboratory Tests Test 01/24/17 17:14 01/24/17 19:59 01/25/17 01:12 01/25/17 05:00 Bedside Glucose 205 165 131 White Blood Count 8.4 # Red Blood Count 4.00 L Hemoglobin 10.4 L Hematocrit 32.3 L Mean Corpuscular Volume 80.8 L Mean Corpuscular Hemoglobin 26.0 L Mean Corpuscular Hemoglobin Concent 32.2 Red Cell Distribution Width 14.4 Platelet Count 242 # Mean Platelet Volume 9.6 Neutrophils % 66.0 Lymphocytes % 18.9 Monocytes % 8.9 Eosinophils % 5.6 Basophils % 0.2 Nucleated Red Blood Cells % 0.0 Neutrophils # 5.6 Lymphocytes # 1.6 Monocytes # 0.8 Eosinophils # 0.5 Basophils # 0.0 Nucleated Red Blood Cells # 0.0 Test 01/25/17 05:56 01/25/17 07:05 01/25/17 08:05 01/25/17 12:07 Bedside Glucose 143 149 119 Sodium Level 141 Potassium Level 3.3 L Chloride Level 108 Carbon Dioxide Level 22 Anion Gap 14 Blood Urea Nitrogen 12 Creatinine 0.85 Glucose Level 165 Calcium Level 7.5 L Medications Medications Current Medications Ondansetron HCl (Zofran Inj) 4 mg Q4H PRN IV NAUSEA Last administered on 21:23; Admin Dose 4 MG; Start 01/21/17 at 21:30 Morphine Sulfate (morphine) 4 mg Q4H PRN IV PAIN LEVEL 7-10 Last administered on 01/23/17 10:23; Admin Dose 4 MG; Start 01/21/17 at 21:30 Lorazepam (Ativan) 0.5 mg Q1HWA PRN IV ANXIETY Last administered on 01/21/17 21 :24; Admin Dose 0.5 MG; Start 01/21/17 at 21:30 Lorazepam (Ativan) 0.5 mg Q6H PRN IV ANXIETY; Start 01/21/17 at 23:00 Metoclopramide HCl (Reglan) 10 mg Q6H PRN IV NAUSEA AND/OR VOMITING; Start 01/21 at 23:00 Nitroglycerin (Nitroglycerin (Sl Tab) 0.4 Mg) 1 tab Q5M PRN SL CHEST PAIN; Start 01/21/17 at 23:00 Hydromorphone HCl (Dilaudid) 2 mg Q4H PRN IV PAIN LEVEL 7-10; Start 01/21/17 at 23:00 Enoxaparin Sodium 40 mg 40 mg DAILY SC Last administered on 01/25/17 09:00; Admin Dose 40 MG; Start 01/22/17 at 09:00 Piperacillin Sod/ Tazobactam Sod (Zosyn 3.375gm/ 100 ml (Pmx)) 100 ml @ 200 mls /hr Q6 IVPB Last administered on 01/25/17 12:09; Admin Dose 200 MLS/HR; Start 01/22/17 at 00:00 Miscellaneous Information 1 ea NOTE XX ; Start 01/21/17 at 23:30 Glucose (Glutose) 15 gm Q15M PRN PO DECREASED GLUCOSE; Start 01/21/17 at 23:30 Glucose (Glutose) 22.5 gm Q15M PRN PO DECREASED GLUCOSE; Start 01/21/17 at 23:30 Dextrose (D50w Syringe) 25 ml Q15M PRN IV DECREASED GLUCOSE; Start 01/21/17 at 23:30 Dextrose (D50w Syringe) 50 ml Q15M PRN IV DECREASED GLUCOSE; Start 01/21/17 at 23:30 Glucagon (Glucagen) 1 mg Q15M PRN IM DECREASED GLUCOSE; Start 01/21/17 at 23:30 Glucose 15 gm 15 gm Q15M PRN BUCCAL DECREASED GLUCOSE; Start 01/21/17 at 23:30 Sodium Chloride (NS) 1,000 ml @ 75 mls/hr [id number] IV Last administered on 05:40; Admin Dose 75 MLS/HR; Start 01/22/17 at 07:00 Hydralazine HCl (Apresoline) 10 mg Q6H PRN IV SBP>160 Last administered on 21:14; Admin Dose 10 MG; Start 01/22/17 at 08:30 Lisinopril (Zestril) 10 mg DAILY PO Last administered on 01/25/17 08:59; Admin Dose 10 MG; Start 01/24/17 at 09:00 Metoprolol Tartrate (Lopressor) 25 mg BID PO Last administered on 01/25/17 09: 00; Admin Dose 25 MG; Start 01/23/17 at 21:00 Insulin Glargine (Lantus) 21 unit DAILY@20 SC Last administered on 4/7/17at 21: 22; Admin Dose 21 UNIT; Start 01/24/17 at 20:00 Diagnostic Test (Pha) (Accu-Chek) 1 02 XX ; Start 01/26/17 at 02:00 Famotidine (Pepcid) 20 mg DAILY PO ; Start 01/26/17 at 09:00 SERGIO GARCIA Jan 25, 2017 17:04
[2017-01-25] MEDS ORDERED: INSULIN ASPART [NOVOLOG] 3 ML PEN SC SCH (17:35)
[2017-01-25] MEDS: morphine 4 MG/ML VIAL IV PRN (18:30)
[2017-01-25] MEDS: INSULIN GLARGINE [LANtus] 3 ML PEN SC SCH (20:52)
[2017-01-26] VITALS (12 sets, daily range): BP systolic 124–161; BP diastolic 65–73; PULSE 58–80; RESP 18–20
[2017-01-26] MEDS: PIPER-TAZO 3.375 GM IV (PMX) 100 ML IVPB SCH ×4 (00:44→18:38)
[2017-01-26] MEDS: ACCUCHECK AT 2AM (Patients on SS coverage) XX SCH (01:04)
[2017-01-26 07:40] LABS: ADD SCAN DIFF NO
[2017-01-26 07:46] LABS: BASOPHILS % 0.3 % (0.0-2.0); EOSINOPHILS # 0.5 10^3/ul (0.0-0.5); EOSINOPHILS % 5.5 % (0.0-7.0); HEMATOCRIT 33.8 % (37.0-47.0); HEMOGLOBIN 10.4 g/dl (12.0-16.0); LYMPHOCYTES # 1.7 10^3/ul (0.8-2.9); LYMPHOCYTES % 19.7 % (15.0-51.0); MEAN CORPUSCULAR HEMOGLOBIN 25.3 pg (29.0-33.0); MEAN CORPUSCULAR HGB CONC 30.8 g/dl (32.0-37.0); MEAN CORPUSCULAR VOLUME 82.2 fl (82.0-101.0); MEAN PLATELET VOLUME 9.6 fl (7.4-10.4); MONOCYTE # 0.6 10^3/ul (0.3-0.9); MONOCYTES % 7.1 % (0.0-11.0); NEUTROPHIL # 5.8 10^3/ul (1.6-7.5); NEUTROPHILS % 66.9 % (39.0-77.0); PLATELET COUNT 219 10^3/UL (140-415); RED BLOOD COUNT 4.11 10^6/ul (4.20-5.40); RED CELL DISTRIBUTION WIDTH 14.3 % (11.5-14.5); WHITE BLOOD COUNT 8.6 10^3/ul (4.8-10.8)
[2017-01-26] MEDS: Insulin NOVOLOG SS MODERATE Algorithm (SS with meals and bedtime) SC SCH ×4 (07:57→21:00)
[2017-01-26 08:06] LABS: CALCIUM 7.1 mg/dl (8.4-10.2); CREATININE 0.75 mg/dl (0.44-1.00); MAGNESIUM 1.4 mg/dl (1.7-2.5); PHOSPHORUS 3.4 mg/dl (2.5-4.9); POTASSIUM 3.7 mmol/L (3.5-5.1)
[2017-01-26] MEDS: FAMOTIDINE 20 MG TAB PO SCH (08:40)
[2017-01-26] MEDS: LISINOPRIL 10 MG TAB PO SCH ×2 (08:40→21:06)
[2017-01-26] MEDS: morphine 4 MG/ML VIAL IV PRN ×2 (08:40→16:44)
[2017-01-26] MEDS: METOPROLOL 25 MG TAB PO SCH ×2 (08:41→21:07)
[2017-01-26] MEDS: INSULIN ASPART [NOVOLOG] 3 ML PEN SC SCH ×4 (08:44→17:32)
[2017-01-26] MEDS: ENOXAPARIN 40 MG/0.4 ML SYG SC SCH (08:44)
[2017-01-26] MEDS: SOD CHLORIDE 0.9% 1,000 ML IV SCH ×2 (12:22→17:38)
--- NOTE | 2017-01-26 14:46 | CONS ---
Date/Time of Note Date/Time of Note DATE: 01/26/17 TIME: 14:44 Assessment/Plan Assessment/Plan Chief Complaint/Hosp Course IMPRESSION: 1. Tachycardia, most consistent with sinus tachycardia at this time, likely driven by significant pain and underlying infection. 2. Abnormal electrocardiogram, assess for acute coronary syndrome. 3. Hypertension, currently under improved control on ACEI/BB 4. Status post laparoscopic cholecystectomy, postop day #2. 5. Systemic inflammatory response syndrome. 6. Bacteremia. 7. Sepsis with gram-positive cocci growing in blood cultures. 8. Leukocytosis. 9. Diabetes mellitus. Recc: -Tele -serial ecg's -Continue BB/ACEI with reasonable BP and HR control -Continue abx's/f/u cx data Problems: Consultation Date/Type/Reason Admit Date/Time Jan 21, 2017 at 19:47 Initial Consult Date 01/23/2017 Type of Consultation: Cardiology Reason for Consultation cielo Referring Provider: ANGELICA RIVERA MD Exam/Review of Systems Vital Signs Vitals Vital Signs Date Time Temp Pulse Resp B/P Pulse Ox O2 Delivery O2 Flow Rate FiO2 01/26/17 12:00 58 01/26/17 11:59 97.4 18 148/71 94 01/26/17 08:04 Nasal Cannula 3.0 01/22/17 21:39 30 Intake and Output 01/25/17 01/25/17 01/26/17 15:00 23:00 07:00 Intake Total 600 ml 800 ml 750 ml Output Total 1225 ml 450 ml 600 ml Balance -625 ml 350 ml 150 ml Exam Review of Systems: CONSTITUTIONAL: No fevers, chills. PULMONARY: No sob CARDIOVASCULAR: No chest pain/palpitations GASTROINTESTINAL:C/O abd pain GENITOURINARY: No hematuria/dysuria. MUSCULOSKELETAL: No myagias/arthalgias. PSYCHIATRIC: The patient denies depression. NEUROLOGIC: No weakness Constitutional: alert, oriented Psych: no complaints Head: normocephalic ENMT: mucosa pink and moist Neck: jvd (9 cm water), supple Respiratory: diminished breath sounds (at bases/B) Cardiovascular: regular rate and rhythm Gastrointestinal: soft, tender (RUQ) Musculoskeletal: muscle tone (normal) Extremities: edema (none) Neurological: other (No focal deficits) Results Result Diagram: 4/9/17 0630 4/9/17 0630 Results 24 hrs Laboratory Tests Test 01/25/17 17:07 01/25/17 20:50 01/26/17 00:46 01/26/17 06:30 Bedside Glucose 131 82 110 White Blood Count 8.6 Red Blood Count 4.11 L Hemoglobin 10.4 L Hematocrit 33.8 L Mean Corpuscular Volume 82.2 Mean Corpuscular Hemoglobin 25.3 L Mean Corpuscular Hemoglobin Concent 30.8 L Red Cell Distribution Width 14.3 Platelet Count 219 Mean Platelet Volume 9.6 Neutrophils % 66.9 Lymphocytes % 19.7 Monocytes % 7.1 Eosinophils % 5.5 Basophils % 0.3 Nucleated Red Blood Cells % 0.0 Neutrophils # 5.8 Lymphocytes # 1.7 Monocytes # 0.6 Eosinophils # 0.5 Basophils # 0.0 Nucleated Red Blood Cells # 0.0 Sodium Level 139 Potassium Level 3.7 Chloride Level 111 H Carbon Dioxide Level 23 Anion Gap 9 # Blood Urea Nitrogen 10 Creatinine 0.75 Glucose Level 113 # Calcium Level 7.1 L Phosphorus Level 3.4 Magnesium Level 1.4 L Test 01/26/17 07:40 01/26/17 11:42 Bedside Glucose 113 96 Medications Medications Current Medications Ondansetron HCl (Zofran Inj) 4 mg Q4H PRN IV NAUSEA Last administered on 21:23; Admin Dose 4 MG; Start 01/21/17 at 21:30 Morphine Sulfate (morphine) 4 mg Q4H PRN IV PAIN LEVEL 7-10 Last administered on 01/26/17 08:40; Admin Dose 4 MG; Start 01/21/17 at 21:30 Lorazepam (Ativan) 0.5 mg Q1HWA PRN IV ANXIETY Last administered on 01/21/17 21 :24; Admin Dose 0.5 MG; Start 01/21/17 at 21:30 Lorazepam (Ativan) 0.5 mg Q6H PRN IV ANXIETY; Start 01/21/17 at 23:00 Metoclopramide HCl (Reglan) 10 mg Q6H PRN IV NAUSEA AND/OR VOMITING; Start 01/21 at 23:00 Nitroglycerin (Nitroglycerin (Sl Tab) 0.4 Mg) 1 tab Q5M PRN SL CHEST PAIN; Start 01/21/17 at 23:00 Hydromorphone HCl (Dilaudid) 2 mg Q4H PRN IV PAIN LEVEL 7-10; Start 01/21/17 at 23:00 Enoxaparin Sodium 40 mg 40 mg DAILY SC Last administered on 01/26/17 08:44; Admin Dose 40 MG; Start 01/22/17 at 09:00 Piperacillin Sod/ Tazobactam Sod (Zosyn 3.375gm/ 100 ml (Pmx)) 100 ml @ 200 mls /hr Q6 IVPB Last administered on 01/26/17 12:19; Admin Dose 200 MLS/HR; Start 01/22/17 at 00:00 Miscellaneous Information 1 ea NOTE XX ; Start 01/21/17 at 23:30 Glucose (Glutose) 15 gm Q15M PRN PO DECREASED GLUCOSE; Start 01/21/17 at 23:30 Glucose (Glutose) 22.5 gm Q15M PRN PO DECREASED GLUCOSE; Start 01/21/17 at 23:30 Dextrose (D50w Syringe) 25 ml Q15M PRN IV DECREASED GLUCOSE; Start 01/21/17 at 23:30 Dextrose (D50w Syringe) 50 ml Q15M PRN IV DECREASED GLUCOSE; Start 01/21/17 at 23:30 Glucagon (Glucagen) 1 mg Q15M PRN IM DECREASED GLUCOSE; Start 01/21/17 at 23:30 Glucose 15 gm 15 gm Q15M PRN BUCCAL DECREASED GLUCOSE; Start 01/21/17 at 23:30 Sodium Chloride (NS) 1,000 ml @ 75 mls/hr [id number] IV Last administered on 12:22; Admin Dose 75 MLS/HR; Start 01/22/17 at 07:00 Hydralazine HCl (Apresoline) 10 mg Q6H PRN IV SBP>160 Last administered on 21:14; Admin Dose 10 MG; Start 01/22/17 at 08:30 Lisinopril (Zestril) 10 mg DAILY PO Last administered on 01/26/17 08:40; Admin Dose 10 MG; Start 01/24/17 at 09:00 Metoprolol Tartrate (Lopressor) 25 mg BID PO Last administered on 01/26/17 08: 41; Admin Dose 25 MG; Start 01/23/17 at 21:00 Insulin Glargine (Lantus) 21 unit DAILY@20 SC Last administered on 01/25/17 20: 52; Admin Dose 21 UNIT; Start 01/24/17 at 20:00 Diagnostic Test (Pha) (Accu-Chek) 1 02 XX ; Start 01/26/17 at 02:00 Famotidine (Pepcid) 20 mg DAILY PO Last administered on 01/26/17 08:40; Admin Dose 20 MG; Start 01/26/17 at 09:00 SERGIO GARCIA Jan 26, 2017 14:46
--- NOTE | 2017-01-26 16:09 | PN ---
DATE: 01/26/2017 SUBJECTIVE: Chart reviewed. Cardiology followup noted. Currently, heart rate is about 75. PHYSICAL EXAMINATION: VITAL SIGNS: Blood pressure 148/71, pulse 75, respiration 18, temperature 97.4. HEENT: Pupils are equal and reactive to light. NECK: Supple, no JVD noted, no cervical adenopathy, no carotid bruits heard. LUNGS: Fair breath sounds bilaterally. CARDIOVASCULAR: S1, S2 normal. ABDOMEN: Soft, nontender. Positive bowel sounds. EXTREMITIES: No clubbing or cyanosis noted. NEUROLOGICAL: Awake. LABORATORY DATA: WBC 8.6, hemoglobin 10.4, hematocrit 33.8, platelets 219. Sodium 139, potassium 3 .7, chloride 111, CO2 of 23, BUN 10, creatinine 0.75, glucose 113. IMPRESSION: 1. Acute cholecystitis status post laparoscopic cholecystectomy. 2. Diabetes mellitus. 3. Hypertension. 4. Fatty liver. 5. History of psychiatric disease. RECOMMENDATIONS: 1. Continue current treatment. 2. Continue antibiotics. 3. Continue physical therapy. 4. Likely will need a nursing home facility. Dictated By: NICOLETTE PHILLIPS MD, MA/REHAN Conf#: [id number] DID#: [id number] CC: DOUGLAS SNEED MD;*EndCC*
[2017-01-26] MEDS: hydrALAzine 20 MG INJ IV PRN (16:19)
[2017-01-26] MEDS ORDERED: MAGNESIUM SULFATE 3 GM in SOD CHLORIDE 0.9% 100 ML IVPB ONE (17:00)
--- NOTE | 2017-01-26 20:41 | PN ---
Date/Time of Note Date/Time of Note DATE: 01/25/17 TIME: 20:41 Assessment/Plan Lines/Catheters IV Catheter Type (from [facility] Peripheral IV Paredes in Place (from [facility]rs): Yes Assessment/Plan Chief Complaint/Hosp Course 1. Abdominal pain, leukocytosis and CT findings with acute significant cholecystitis s/p lap nathan 01/22 -Antibiotics -Judicious fluid management -Drain 2. Possible sepsis secondary to above. Continue antibiotics judicious fluid management and medical optimization. Improving 3. Morbid obesity with body mass index of 51. The patient is highly encouraged to eventually optimize her nutrition and exercise to improve her overall health status. 4. Psychiatric disorders with bipolar, depression and schizophrenia. Continue medical and psychiatric optimization. 5. Diabetes. Continue diet and medication control and encourage weight loss. 6. Hypertension. Continue diet and medication control and encourage weight loss. Thank you, Late entry 01/25 Problems: Subjective 24 Hr Interval Summary Some abdominal pain. No nausea or vomiting. No fevers or chills. No chest pain or shortness of breath. No visual neurologic changes. No dysuria. No cough. No seizure. No blood per mouth or rectum. Bowel function. Exam/Review of Systems Vital Signs Vitals Vital Signs Date Time Temp Pulse Resp B/P Pulse Ox O2 Delivery O2 Flow Rate FiO2 01/26/17 20:18 97.8 80 20 148/65 94 01/26/17 08:04 Nasal Cannula 3.0 01/22/17 21:39 30 Intake and Output 01/25/17 01/25/17 01/26/17 15:00 23:00 07:00 Intake Total 600 ml 1875 ml 1750 ml Output Total 1225 ml 450 ml 600 ml Balance -625 ml 1425 ml 1150 ml Exam Free Text/Dictation GENERAL: Morbidly obese, no acute distress. HEENT: Pupils equal, reactive. No scleral icterus. Mucous membranes are moist. NECK: Supple, obese, no JVD observable. PULMONARY: Normal respiratory effort. No wheezing. CARDIAC: S1, S2 present and tachy. ABDOMEN: Soft, morbidly obese, min tender. No rebound, no guarding, not rigid. Drain serosang. EXTREMITIES: With edema. VASCULAR: Cap refill is 2 seconds. NEUROLOGIC: Alert and oriented, moves all 4 extremities grossly. LYMPHATICS: No inguinal or cervical ln PSYCH: Flat affect Results Result Diagram: 01/26/17 0630 01/26/17 0630 ANGELICA RIVERA MD Jan 26, 2017 20:41
--- NOTE | 2017-01-26 20:42 | PN ---
Date/Time of Note Date/Time of Note DATE: 01/26/17 TIME: 20:41 Assessment/Plan Lines/Catheters IV Catheter Type (from [facility]): Peripheral IV Paredes in Place (from Nrs): Yes Assessment/Plan Chief Complaint/Hosp Course 1. Abdominal pain, leukocytosis and CT findings with acute significant cholecystitis s/p lap nathan 01/22 -Antibiotics -Judicious fluid management -Drain 2. Possible sepsis secondary to above. Continue antibiotics judicious fluid management and medical optimization. Improving 3. Morbid obesity with body mass index of 51. The patient is highly encouraged to eventually optimize her nutrition and exercise to improve her overall health status. 4. Psychiatric disorders with bipolar, depression and schizophrenia. Continue medical and psychiatric optimization. 5. Diabetes. Continue diet and medication control and encourage weight loss. 6. Hypertension. Continue diet and medication control and encourage weight loss. Thank you, Late entry 01/25 Problems: Subjective 24 Hr Interval Summary Some abdominal pain. No nausea or vomiting. No fevers or chills. No chest pain or shortness of breath. No visual neurologic changes. No dysuria. No cough. No seizure. No blood per mouth or rectum. Bowel function. Exam/Review of Systems Vital Signs Vitals Vital Signs Date Time Temp Pulse Resp B/P Pulse Ox O2 Delivery O2 Flow Rate FiO2 01/26/17 20:18 97.8 80 20 148/65 94 01/26/17 08:04 Nasal Cannula 3.0 01/22/17 21:39 30 Intake and Output 01/25/17 01/25/17 01/26/17 15:00 23:00 07:00 Intake Total 600 ml 1875 ml 1750 ml Output Total 1225 ml 450 ml 600 ml Balance -625 ml 1425 ml 1150 ml Exam Free Text/Dictation GENERAL: Morbidly obese, no acute distress. HEENT: Pupils equal, reactive. No scleral icterus. Mucous membranes are moist. NECK: Supple, obese, no JVD observable. PULMONARY: Normal respiratory effort. No wheezing. CARDIAC: S1, S2 present and tachy. ABDOMEN: Soft, morbidly obese, min tender. No rebound, no guarding, not rigid. Drain serosang. EXTREMITIES: With edema. VASCULAR: Cap refill is 2 seconds. NEUROLOGIC: Alert and oriented, moves all 4 extremities grossly. LYMPHATICS: No inguinal or cervical ln PSYCH: Flat affect Results Result Diagram: 01/26/17 0630 01/26/17 0630 ANGELICA RIVERA MD Jan 26, 2017 20:42
[2017-01-26] MEDS: INSULIN GLARGINE [LANtus] 3 ML PEN SC SCH (21:13)
[2017-01-27] VITALS (10 sets, daily range): BP systolic 141–181; BP diastolic 65–81; PULSE 67–83; RESP 16–18
[2017-01-27] MEDS: PIPER-TAZO 3.375 GM IV (PMX) 100 ML IVPB SCH ×3 (00:55→12:08)
[2017-01-27] MEDS: morphine 4 MG/ML VIAL IV PRN ×2 (00:55→10:58)
[2017-01-27] MEDS: ACCUCHECK AT 2AM (Patients on SS coverage) XX SCH (02:00)
[2017-01-27] MEDS: Insulin NOVOLOG SS MODERATE Algorithm (SS with meals and bedtime) SC SCH ×4 (08:00→22:29)
[2017-01-27] MEDS: METOPROLOL 25 MG TAB PO SCH ×2 (08:35→22:10)
[2017-01-27] MEDS: FAMOTIDINE 20 MG TAB PO SCH (08:35)
[2017-01-27] MEDS: INSULIN ASPART [NOVOLOG] 3 ML PEN SC SCH ×3 (08:40→17:45)
[2017-01-27] MEDS: ENOXAPARIN 40 MG/0.4 ML SYG SC SCH (08:41)
[2017-01-27] MEDS: LISINOPRIL 10 MG TAB PO SCH (08:51)
[2017-01-27] MEDS: SOD CHLORIDE 0.9% 1,000 ML IV SCH (08:51)
--- NOTE | 2017-01-27 12:22 | PN ---
Date/Time of Note Date/Time of Note DATE: 01/27/17 TIME: 12:20 Assessment/Plan Lines/Catheters IV Catheter Type (from [facility]): Peripheral IV Paredes in Place (from Nrs): Yes Assessment/Plan Chief Complaint/Hosp Course 1. Abdominal pain, leukocytosis and CT findings with acute significant cholecystitis s/p lap nathan 01/22. s/p Abx. -Ok to discharge home on oral abx and with drain 2. Possible sepsis secondary to above. Continue antibiotics judicious fluid management and medical optimization. Resolved 3. Morbid obesity with body mass index of 51. The patient is highly encouraged to eventually optimize her nutrition and exercise to improve her overall health status. 4. Psychiatric disorders with bipolar, depression and schizophrenia. Continue medical and psychiatric optimization. 5. Diabetes. Continue diet and medication control and encourage weight loss. 6. Hypertension. Continue diet and medication control and encourage weight loss. Thank you, Problems: Subjective 24 Hr Interval Summary Some abdominal pain. No nausea or vomiting. No fevers or chills. No chest pain or shortness of breath. No visual neurologic changes. No dysuria. No cough. No seizure. No blood per mouth or rectum. Bowel function. Exam/Review of Systems Vital Signs Vitals Vital Signs Date Time Temp Pulse Resp B/P Pulse Ox O2 Delivery O2 Flow Rate FiO2 01/27/17 11:47 98.3 72 18 141/65 98 01/27/17 08:00 Nasal Cannula 2.0 Intake and Output 01/26/17 01/26/17 01/27/17 15:00 23:00 07:00 Intake Total 600 ml 1550 ml 1300 ml Output Total 275 ml 1445 ml 950 ml Balance 325 ml 105 ml 350 ml Exam Free Text/Dictation GENERAL: Morbidly obese, no acute distress. HEENT: Pupils equal, reactive. No scleral icterus. Mucous membranes are moist. NECK: Supple, obese, no JVD observable. PULMONARY: Normal respiratory effort. No wheezing. CARDIAC: S1, S2 present and tachy. ABDOMEN: Soft, morbidly obese, min tender. No rebound, no guarding, not rigid. Drain serosang. EXTREMITIES: With edema. VASCULAR: Cap refill is 2 seconds. NEUROLOGIC: Alert and oriented, moves all 4 extremities grossly. LYMPHATICS: No inguinal or cervical ln PSYCH: Flat affect Results Result Diagram: 01/26/17 0630 01/26/17 0630 ANGELICA RIVERA MD Jan 27, 2017 12:22
--- NOTE | 2017-01-27 14:59 | PDOCDIS ---
Discharge Instructions DIAGNOSIS Discharge Diagnosis: ac cholecystitis CONDITION Patient Condition: Stable HOME CARE INSTRUCTIONS: Special Diet: advance to regular ACTIVITY: Activity Restrictions: No Restrictions Rest between Activity FOLLOW UP/APPOINTMENTS Appointments Appt Dr Davila -1wk Drain Care daily. Appt Dr Berrios [phone] for Haldol use. TONY HALL MD Jan 27, 2017 14:59
[2017-01-27] MEDS: metroNIDAZOLE 500 MG TAB PO SCH ×2 (15:04→22:09)
[2017-01-27] MEDS ORDERED: HALOPERIDOL 5 MG INJ IM SCH (15:30)
--- NOTE | 2017-01-27 15:33 | CONS ---
Date/Time of Note Date/Time of Note DATE: 01/27/17 TIME: 15:29 Assessment/Plan Assessment/Plan Chief Complaint/Hosp Course IMPRESSION: 1. Tachycardia, most consistent with sinus tachycardia at this time, likely driven by significant pain and underlying infection-now improved 2. Abnormal electrocardiogram, assess for acute coronary syndrome. 3. Hypertension, currently under improved control on ACEI/BB 4. Status post laparoscopic cholecystectomy, postop day . 5. Systemic inflammatory response syndrome. 6. Bacteremia. 7. Sepsis with gram-positive cocci growing in blood cultures. 8. Leukocytosis. 9. Diabetes mellitus. Recc: -Tele -serial ecg's -Continue BB -Increase ACEI to improve SBP control -Continue abx's/f/u cx data Problems: Consultation Date/Type/Reason Admit Date/Time Jan 21, 2017 at 19:47 Initial Consult Date 01/23/2017 Type of Consultation: Cardiology Reason for Consultation tachycardia Referring Provider: ANGELICA RIVERA MD Exam/Review of Systems Vital Signs Vitals Vital Signs Date Time Temp Pulse Resp B/P Pulse Ox O2 Delivery O2 Flow Rate FiO2 01/27/17 12:33 67 01/27/17 11:47 98.3 18 141/65 98 01/27/17 08:00 Nasal Cannula 2.0 Intake and Output 01/26/17 01/26/17 01/27/17 15:00 23:00 07:00 Intake Total 600 ml 1550 ml 1300 ml Output Total 275 ml 1445 ml 950 ml Balance 325 ml 105 ml 350 ml Exam Review of Systems: CONSTITUTIONAL: No fevers, chills. PULMONARY: No sob CARDIOVASCULAR: No chest pain/palpitations GASTROINTESTINAL: Mild abd pain GENITOURINARY: No hematuria/dysuria. MUSCULOSKELETAL: No myagias/arthalgias. PSYCHIATRIC: The patient denies depression. NEUROLOGIC: No weakness Constitutional: alert ENMT: mucosa pink and moist Neck: jvd, supple Respiratory: diminished breath sounds Cardiovascular: regular rate and rhythm Gastrointestinal: soft Musculoskeletal: muscle tone Extremities: normal pulses Neurological: other Results Result Diagram: 01/26/17 0630 01/26/17 0630 Results 24 hrs Laboratory Tests Test 01/26/17 17:20 01/26/17 21:10 01/27/17 07:48 01/27/17 11:45 Bedside Glucose 89 117 129 151 Medications Medications Current Medications Ondansetron HCl (Zofran Inj) 4 mg Q4H PRN IV NAUSEA Last administered on 21:23; Admin Dose 4 MG; Start 01/21/17 at 21:30 Morphine Sulfate (morphine) 4 mg Q4H PRN IV PAIN LEVEL 7-10 Last administered on 01/27/17 10:58; Admin Dose 4 MG; Start 01/21/17 at 21:30 Lorazepam (Ativan) 0.5 mg Q1HWA PRN IV ANXIETY Last administered on 01/21/17 21 :24; Admin Dose 0.5 MG; Start 01/21/17 at 21:30 Lorazepam (Ativan) 0.5 mg Q6H PRN IV ANXIETY; Start 01/21/17 at 23:00 Nitroglycerin (Nitroglycerin (Sl Tab) 0.4 Mg) 1 tab Q5M PRN SL CHEST PAIN; Start 01/21/17 at 23:00 Hydromorphone HCl (Dilaudid) 2 mg Q4H PRN IV PAIN LEVEL 7-10; Start 01/21/17 at 23:00 Enoxaparin Sodium (Lovenox) 40 mg DAILY SC Last administered on 01/27/17 08:41 ; Admin Dose 40 MG; Start 01/22/17 at 09:00 Miscellaneous Information 1 ea NOTE XX ; Start 01/21/17 at 23:30 Glucose (Glutose) 15 gm Q15M PRN PO DECREASED GLUCOSE; Start 01/21/17 at 23:30 Glucose (Glutose) 22.5 gm Q15M PRN PO DECREASED GLUCOSE; Start 01/21/17 at 23:30 Dextrose (D50w Syringe) 25 ml Q15M PRN IV DECREASED GLUCOSE; Start 01/21/17 at 23:30 Dextrose (D50w Syringe) 50 ml Q15M PRN IV DECREASED GLUCOSE; Start 01/21/17 at 23:30 Glucagon (Glucagen) 1 mg Q15M PRN IM DECREASED GLUCOSE; Start 01/21/17 at 23:30 Glucose (Glutose) 15 gm Q15M PRN BUCCAL DECREASED GLUCOSE; Start 01/21/17 at 23: 30 Hydralazine HCl (Apresoline) 10 mg Q6H PRN IV SBP>160 Last administered on 16:19; Admin Dose 10 MG; Start 01/22/17 at 08:30 Metoprolol Tartrate (Lopressor) 25 mg BID PO Last administered on 01/27/17 08: 35; Admin Dose 25 MG; Start 01/23/17 at 21:00 Insulin Glargine (Lantus) 21 unit DAILY@20 SC Last administered on 01/26/17 21: 13; Admin Dose 21 UNIT; Start 01/24/17 at 20:00 Diagnostic Test (Pha) (Accu-Chek) 1 ea 02 XX ; Start 01/26/17 at 02:00 Famotidine (Pepcid) 20 mg DAILY PO Last administered on 01/27/17 08:35; Admin Dose 20 MG; Start 01/26/17 at 09:00 Lisinopril (Zestril) 10 mg BID PO Last administered on 01/27/17 08:51; Admin Dose 10 MG; Start 01/26/17 at 21:00 Ciprofloxacin (Cipro) 500 mg BID@06,18 PO ; Start 01/27/17 at 18:00 Metronidazole (Flagyl) 500 mg Q8 PO Last administered on 01/27/17 15:04; Admin Dose 500 MG; Start 01/27/17 at 14:30 Lactobacillus Acidophilus/ Rhamnosus (Culturelle) 1 cap BID PO ; Start 01/27/17 at 21:00 Haloperidol (Haldol) 100 mg ONCE IM ; Start 01/27/17 at 15:30; Stop 05/07/17 at 15:29; Status UNSERGIO MORGAN Jan 27, 2017 15:33
[2017-01-27] MEDS: hydrALAzine 20 MG INJ IV PRN ×2 (16:06→22:09)
[2017-01-27] MEDS ORDERED: CIPROFLOXACIN 500 MG TAB PO SCH (18:00)
[2017-01-27] MEDS ORDERED: LISINOPRIL 20 MG TAB PO SCH (21:00)
[2017-01-27] MEDS ORDERED: LACTOBACILLUS RHAMNOSUS CAP PO SCH (21:00)
[2017-01-27] MEDS: INSULIN GLARGINE [LANtus] 3 ML PEN SC SCH (22:29)
--- NOTE | 2017-01-28 02:07 | DS ---
DATE OF ADMISSION: 01/21/2017 DATE OF DISCHARGE: 01/27/2017 PRIMARY CARE PHYSICIAN: Unknown. [place] TECHNICIAN: Dr. Davila, Dr. Stephens DIAGNOSIS ON ADMISSION: Acute cholecystitis. DIAGNOSES ON DISCHARGE: 1. Morbid obesity. 2. Chronic schizophrenia. 3. Diabetes. 4. Metabolic syndrome. 5. Hypertension. HOSPITAL COURSE: A 67-year-old female admitted with acute cholecystitis. Seen by surgery. Andrae nt laparoscopic cholecystectomy under the care of Dr. Davila. Please see operative report for comp lete details. Postoperative hospital course was uncomplicated. The patient is tolerating diet, prateek n is controlled. She is stable and fit for discharge. She is on antibiotics, Cipro and Flagyl. Sh claudia still has a drain. Due to deconditioning, will recuperate at a SNF. Incidentally, the liver looked cirrhotic and a liver wedge resection was done. She will need to fol low up with her surgeon in 1 week. I met with the patient's family and asked that they consider long-term caregiver as needed. Needs a dvanced care planning established as well. Incidentally patient has chronic schizophrenia. She has missed her last Haldol dose. It will be gi maría elena here prior to discharge of 100 mg IM once a month. OPERATION PERFORMED: Laparoscopic cholecystectomy, liver wedge resection biopsy, bilateral transver se abdominis ____. A 2D echo read as EF of 65%. Mild concentric LVH. Chest x-ray: No acute proce ss, mild congestion. CAT scan abdomen and pelvis read as acute cholecystitis, fatty liver disease w ith small amount of free fluid over the liver. Blood cultures read as strep nutritional variant. A bdominal fluid body showed alpha hemolytic strep species and E. coli. Urine unremarkable. LABORATORIES: Sodium 139, potassium 3.7, chloride 110, bicarbonate 23, BUN of 10, creatinine 0.7, g lucose 113, calcium 7. Magnesium 1.4, phosphorus 3.4. Triglycerides 90, total of 88, LDL 49, HDL 2 1. TSH of 1.9. Bilirubin 0, AST and ALT of 34 and 21, alkaline phosphatase of 135. INR 1.1. Whit e cell count of 8, hemoglobin and hematocrit of 10 and 33, MCV 82, platelets of 219. DISCHARGE PLAN: The patient will be discharged to detention facility. DIET: 1800 ADA. ACTIVITY: No heavy lifting. FOLLOWUP: 1. Appointment with Dr. Davila. 2. Appointment behavioral health, Dr. Roman as needed, . MEDICATIONS: STOPPED MEDICATIONS: 1. Metformin. 2. Glipizide. 3. Pravastatin for now. CONTINUED MEDICATIONS: None. ALTERED MEDICATIONS: None. NEW MEDICATIONS: 1. Ciprofloxacin 500 twice daily. 2. Lovenox 40 subcutaneous daily. 3. Pepcid 20 daily. 4. Glucagon as needed. 5. NovoLog sliding scale. 6. Culturelle 1 capsule twice daily. 7. Lantus 21 nightly. 8. NovoLog 7 units with meals. 9. Lisinopril 10 daily. 10. Lopressor 25 b.i.d. 11. Flagyl 500 three times daily. 12. Page 10 one every 4 hours as needed. Dictated By: TONY HALL MD AC/NTS Conf#: [id number] DID#: [id number] CC: SERGIO STEPHENS MD; DOUGLAS SNEED MD; ANGELICA DAVILA MD;*[facility]*
--- NOTE | 2017-01-30 14:17 | PQ ---
Date/Time of Note Date/Time of Note DATE: 01/30/17 TIME: 14:[address] Church, Documentation in the medical record indicates this patient has been admitted with or diagnosed as having: H & P -1) Severe Sepsis with elevated lactic acid, elevated heart rate and elevated respiratory rat The following is also documented in the medical record: Dr. Davila - 2. Possible sepsis secondary to acute cholecystits ( 01/27) WBC = 14.3 [place] = 110's (adm) + blood culture Tx: Piperacillin IV 01/22- 01/27 Ciprofloxacin 500mg p.o. x 1 Based on your medical judgment, please clarify if sepsis was: ( ) ruled in ( ) ruled out ( ) still suspected, probable ( ) unable to clinically determine ( ) Please provide your response by clicking edit document, making your choice ( x ), click ok/save and finally click sign. You may also document your response on your progress notes. Thank you for your time. Doug Huddleston RN, BSN, CCS, CCDS Clinical [facility], [facility] Services [phone] Room # 1525 - [address]~ [id number] DOUG HUDDLESTON Jan 30, 2017 14:17
--- NOTE | 2017-01-31 13:52 | PQ ---
Date/Time of Note Date/Time of Note DATE: 01/31/17 TIME: 13:50 Physician Query Clinical Documentation Follow up Dear Dr. Church, Documentation in the medical record indicates this patient has been admitted with or diagnosed as having: H & P -1) Severe Sepsis with elevated lactic acid, elevated heart rate and elevated respiratory rat The following is also documented in the medical record: Dr. Davila - 2. Possible sepsis secondary to acute cholecystits ( 01/27) WBC = 14.3 [place] = 110's (adm) + blood culture Tx: Piperacillin IV 01/22- 01/27 Ciprofloxacin 500mg p.o. x 1 Based on your medical judgment, please clarify if sepsis was: ( ) ruled in ( ) ruled out ( ) still suspected, probable ( ) unable to clinically determine ( ) Please provide your response by clicking edit document, making your choice ( x ), click ok/save and finally click sign. You may also document your response on your progress notes. Thank you for your time. Doug Huddleston RN, BSN, CCS, CCDS Clinical [facility], [facility] [phone] Room # 1525 - [address]~ [id number] DOUG HUDDLESTON Jan 31, 2017 13:52
== END 2017-01-27 22:33 | DRG 854 ==
LOC: E/R 18:28 → MS4 19:47
PROVIDERS: ADMIT Family Medicine; ATTEND Family Medicine
PROC: 0FB04ZX Excision of Liver, Percutaneous Endoscopic Approach, Diagnostic (ICD-10-PCS; 2017-01-22)
PROC: 0FT44ZZ Resection of Gallbladder, Percutaneous Endoscopic Approach (ICD-10-PCS; principal; 2017-01-22 16:00)
DX: A41.9 Sepsis, unspecified organism (principal); E87.2 Acidosis; R18.8 Other ascites; E88.81 Metabolic syndrome and other insulin resistance; K81.0 Acute cholecystitis; E11.65 Type 2 diabetes mellitus with hyperglycemia; Z68.43 Body mass index [BMI] 50.0-59.9, adult; F20.89 Other schizophrenia; R65.20 Severe sepsis without septic shock; K76.0 Fatty (change of) liver, not elsewhere classified; E66.01 Morbid (severe) obesity due to excess calories; I10 Essential (primary) hypertension; E78.5 Hyperlipidemia, unspecified; F32.9 Major depressive disorder, single episode, unspecified; E87.6 Hypokalemia; R94.31 Abnormal electrocardiogram [ECG] [EKG]
CPT/HCPCS: 36415; 36600; 71010; 74176; 80048; 80053; 80061; 80076; 82550; 82553; 82803; 82962; 83605; 83735; 84100; 84443; 84484; 85025; 85378; 85610; 85730; 87040; 87070; 87086; 88104; 88304; 88305; 88307; 88313; 93005; 93306; 94660; 94664; 96361; 96365; 96375; 96376; 97162; J0330; J0360; J1170; J1650; J1815; J2060; J2250; J2270; J2370; J2405; J2543; J2710; J3010; J3475; J3480; J7030